=== PATIENT | male | born 1945 | race Caucasian/White ===

== ENCOUNTER → 2020-09-10 | Outpatient (CLI) | payer OTHER ==
--- NOTE | 2020-09-10 10:15 | US ---
EXAMINATION TYPE: US carotid duplex BILAT DATE OF EXAM: 09/10/2020 COMPARISON: NONE CLINICAL HISTORY: Z86.73 PERSONAL HX TRANSIENT ISCHEMIC ATTACK. History of TIA, stent seen within lef t carotid. EXAM MEASUREMENTS: RIGHT: Peak Systolic Velocity (PSV) cm/sec ----- Right CCA: 107.0 ----- Right ICA: 111.0 ----- Right ECA: 115.0 ICA/CCA ratio: 1.0 RIGHT: End Diastole cm/sec ----- Right CCA: 25.3 ----- Right ICA: 24.6 ----- Right ECA: 20.4 LEFT: Peak Systolic Velocity (PSV) cm/sec ----- Left CCA: 138.0 ----- Left ICA: 108.0 ----- Left ECA: 93.7 ICA/CCA ratio: 0.8 LEFT: End Diastole cm/sec ----- Left CCA: 31.2 ----- Left ICA: 36.3 ----- Left ECA: 13.4 VERTEBRALS (direction of flow): Right Vertebral: Antegrade Left Vertebral: Antegrade Rhythm: Normal No significant stenosis. IMPRESSION: No evidence for hemodynamically significant stenosis. Criteria for Assigning % of Stenosis / Diameter reduction (Estimation based on the indirect measurements of the internal carotid artery velocities (ICA PSV). 1. Normal (no stenosis)=ICA PSV < 125 cm/s: ratio < 2.0: ICA EDV<40 cm/s. 2. Less than 50% stenosis=ICA PSV < 125 cm/s: ratio < 2.0: ICA EDV<40 cm/s. 3. 50 to 69% stenosis=ICA PSV of 125 to 230 cm/s: ration 2.0 ? 4.0: ICA EDV 40-100 cm/s. 4. Greater than 70% stenosis to near occlusion= ICA PSV > 230 cm/s: ratio > 4.0: ICA EDV > 100 cm/s. 5. Near occlusion= ICA PSV velocities may be low or undetectable: variable ratio and ICA EDV. 6. Total occlusion=unable to detect flow.
== END | disposition home or self-care (01) ==
LOC: RADUSWWP 09:21
DX: Z86.73 Personal history of transient ischemic attack (TIA), and cerebral infarction without residual deficits (principal)
CPT/HCPCS: 93880

== ENCOUNTER → 2021-10-12 | Outpatient (CLI) | payer OTHER ==
--- NOTE | 2021-10-12 12:59 | US ---
EXAMINATION TYPE: US carotid duplex BILAT DATE OF EXAM: 10/12/2021 COMPARISON: Carotid ultrasound one year ago CLINICAL HISTORY: Z86.73 Personal hx of transient ischemic attack. Hx of TIA x 2. Last one is 2 year s ago. Hx of left carotid stent. No HTN. EXAM MEASUREMENTS: RIGHT: Peak Systolic Velocity (PSV) cm/sec ----- Right CCA: 98.2 ----- Right ICA: 106.4 ----- Right ECA: 94.3 ICA/CCA ratio: 1.1 RIGHT: End Diastole cm/sec ----- Right CCA: 22.7 ----- Right ICA: 24.1 ----- Right ECA: 0.0 LEFT: Peak Systolic Velocity (PSV) cm/sec ----- Left CCA: 99.5 ----- Left ICA: 84.0 ----- Left ECA: 77.9 ICA/CCA ratio: 0.8 LEFT: End Diastole cm/sec ----- Left CCA: 24.5 ----- Left ICA: 28.3 ----- Left ECA: 14.2 VERTEBRALS (direction of flow): Right Vertebral: Antegrade Left Vertebral: Antegrade Rhythm: Normal [id number] peripheral plaque right carotid bulb redemonstrated on grayscale images. Long segmen t Left-sided stent again seen. Velocity measurements remain within normal limits bilaterally IMPRESSION: No significant stenosis in either internal carotid artery. No significant change from prior. Criteria for Assigning % of Stenosis / Diameter reduction (Estimation based on the indirect measurements of the internal carotid artery velocities (ICA PSV). 1. Normal (no stenosis)=ICA PSV < 125 cm/s: ratio < 2.0: ICA EDV<40 cm/s. 2. Less than 50% stenosis=ICA PSV < 125 cm/s: ratio < 2.0: ICA EDV<40 cm/s. 3. 50 to 69% stenosis=ICA PSV of 125 to 230 cm/s: ration 2.0 ? 4.0: ICA EDV 40-100 cm/s. 4. Greater than 70% stenosis to near occlusion= ICA PSV > 230 cm/s: ratio > 4.0: ICA EDV > 100 cm/s. 5. Near occlusion= ICA PSV velocities may be low or undetectable: variable ratio and ICA EDV. 6. Total occlusion=unable to detect flow.
== END | disposition home or self-care (01) ==
LOC: RADUSWWP 10:47
DX: I65.21 Occlusion and stenosis of right carotid artery (principal); Z86.73 Personal history of transient ischemic attack (TIA), and cerebral infarction without residual deficits
CPT/HCPCS: 93880

== ENCOUNTER 2022-03-28 08:33 | Day surgery (SDC) | payer OTHER ==
[2022-03-21 15:47] VITALS: BMI 26.0
[~2022-03-28 08:33] MED LIST: LACTATED RINGERS 1,000 ML IV SCH
[2022-03-28 09:39] VITALS: TEMP 97.4
[2022-03-28 09:47] LABS: Glucose,Whole Blood 134 mg/dL (70-110)
[2022-03-28] MEDS ORDERED: PROPOFOL 10 MG/ML 20 ML VIAL IV ONE (10:20)
[2022-03-28] MEDS ORDERED: LIDOCAINE 2% INJ 20 MG/ML (2 ML VIAL) ONE (10:20)
--- NOTE | 2022-03-28 10:42 | P.PCN ---
Date of Procedure: 03/28/22 Procedure(s) Performed: BRIEF HISTORY: Patient is a 77-year-old pleasant male scheduled for an elective colonoscopy as a part of evaluation of left lower quadrant abdominal pain and change in bowel habits for the last 6 months duration. PROCEDURE PERFORMED: Colonoscopy with biopsy and snare polypectomy. PREOPERATIVE DIAGNOSIS: Lower abdominal pain and change in bowel habits. IV sedation per Anesthesia. PROCEDURE: After informed consent was obtained, the patient, was brought into the endoscopy unit. IV sedation was administered by Anesthesia under continuous monitoring. Digital rectal examination was normal. Initially the Olympus CF-160 flexible video colonoscope was then inserted in the rectum, gradually advanced into the cecum without any difficulty. Careful examination was performed as the scope was gradually being withdrawn. Ileocecal valve and the appendiceal orifice were visualized and appeared normal. Prep was excellent. Mucosa of the cecum, ascending colon, appeared normal. In the transverse colon there was a 5 mm polyp that was removed by snare polypectomy. Rest of the transverse colon, descending colon, sigmoid colon, and rectum appeared normal. Biopsies were done from ascending and descending colon to rule out microscopic/collagenous colitis. Retroflexion was performed in the rectum and no lesions were seen. The patient tolerated the procedure well. IMPRESSION: 5-6 mm transverse colon polyp status post polypectomy Moderate left sided diverticulosis RECOMMENDATIONS: Findings of this examination were discussed with the patient as his family.. He was advised to follow with the biopsy results. If the biopsies adenoma he can have a repeat colonoscopy in 5 years. In the meantime he will continue with dicyclomine 10 mg 3 times daily as needed and increase in office in 3-4 weeks.
[2022-03-28 10:47] VITALS: BP 93/60
[2022-03-28 11:03] VITALS: PULSE 71; RESP 16
== END 2022-03-28 11:30 | disposition home or self-care (01) ==
LOC: ORWHC2ENDO 08:33
PROVIDERS: ATTEND Internal Medicine Gastroenterology
DX: D12.3 Benign neoplasm of transverse colon (principal); K57.30 Diverticulosis of large intestine without perforation or abscess without bleeding; I10 Essential (primary) hypertension; E78.5 Hyperlipidemia, unspecified; J44.9 Chronic obstructive pulmonary disease, unspecified; E11.9 Type 2 diabetes mellitus without complications; I63.9 Cerebral infarction, unspecified; Z79.84 Long term (current) use of oral hypoglycemic drugs; Z79.891 Long term (current) use of opiate analgesic; Z79.83 Long term (current) use of bisphosphonates; Z79.899 Other long term (current) drug therapy
CPT/HCPCS: 88305; 45380; 45385; J2704; J2001

== ENCOUNTER 2022-07-12 09:21 | Inpatient (IN) | payer OTHER, MEDICARE ==
[2022-07-12] MEDS ORDERED: SODIUM CHLORIDE 0.9% 1,000 ML IV STA ×2 (09:55→11:13)
[2022-07-12] MEDS ORDERED: ASPIRIN 81 MG PO STA (09:55)
[2022-07-12 10:16] LABS: Basophils % (A) 0 %; Eosinophils % (A) 0 %; HCT 31.8 % (39.0-53.0); HGB 10.8 gm/dL (13.0-17.5); Lymphocytes # (A) 1.2 k/uL (1.0-4.8); Lymphocytes % (A) 13 %; MCH 33.2 pg (25.0-35.0); MCV 97.8 fL (80.0-100.0); Mean Platelet Volume 8.7; Monocytes # (A) 0.5 k/uL (0-1.0); Monocytes % (A) 5 %; Neutrophils # (A) 7.5 k/uL (1.3-7.7); Neutrophils % (A) 79 %; Platelet Count 257 k/uL (150-450); RBC 3.25 m/uL (4.30-5.90); RDW 12.4 % (11.5-15.5); WBC 9.4 k/uL (3.8-10.6)
--- NOTE | 2022-07-12 10:22 | XR ---
EXAMINATION TYPE: XR chest 2V DATE OF EXAM: 07/12/2022 COMPARISON: NONE HISTORY: Chest pain. TECHNIQUE: Frontal and lateral views of the chest are obtained. FINDINGS: Reticular increased markings bilaterally. There is no suspicious focal air space opacity, pleural effusion, or pneumothorax seen. The cardiac silhouette size is within normal limits with ath erosclerotic change in the aortic knob. The osseous structures are intact. IMPRESSION: Suspect chronic parenchymal fibrotic changes without acute pulmonary process.
[2022-07-12 10:24] LABS: INR 1.2 (<1.2); Partial Thromboplastin Time 29.1 sec (22.0-30.0); Prothrombin Time 12.5 sec (9.0-12.0)
[2022-07-12 10:27] LABS: Albumin 3.4 g/dL (3.5-5.0); Calcium 8.2 mg/dL (8.4-10.2); Magnesium 1.5 mg/dL (1.6-2.3); Potassium 4.5 mmol/L (3.5-5.1); Total Bilirubin 0.9 mg/dL (0.2-1.3); Total Protein 6.1 g/dL (6.3-8.2)
[2022-07-12] MEDS ORDERED: METOPROLOL TARTRATE 12.5 MG TAB PO STA (11:13)
[2022-07-12] MEDS: MAGNESIUM SULFATE-D5W PMX 1 GM in DEXTROSE/WATER 1 100ML.BAG IVPB SCH ×2 (11:19→12:36)
[2022-07-12] MEDS ORDERED: NALOXONE 0.4 MG/ML 1 ML VIAL IV PRN (11:26)
[2022-07-12 11:32] LABS: Appearance,Urine Clear (Clear); Bilirubin,Urine Negative (Negative); Blood,Urine Negative (Negative); Color,Urine Yellow; Glucose,Urine (UA) Negative (Negative); Hyaline Casts,Urine 7 /lpf (0-2); Ketones,Urine Negative (Negative); Leukocyte Esterase,Urine Negative (Negative); Mucus,Urine Occasional /hpf; Nitrite,Urine Negative (Negative); Protein,Urine 1+ (Negative); RBC,Urine 2 /hpf (0-5); Specific Gravity,Urine 1.022 (1.001-1.035); Squamous Epithelial Cell,Urine 1 /hpf (0-4); WBC,Urine 2 /hpf (0-5)
--- NOTE | 2022-07-12 11:44 | ED ---
General Adult HPI - General Chief complaint: Arrhythmia/Palpitations Stated complaint: Recheck Time Seen by Provider: 07/12/22 09:24 Source: patient, family, RN notes reviewed, old records reviewed Mode of arrival: ambulatory Limitations: no limitations - History of Present Illness Initial comments: Patient is a 77-year-old male who presents emergency department over concern for new-onset atrial fibrillation. He has a history of recent cardiac stent placed last week and [facility]. Was sent in by his stump blower Dr. Junior who was seeing him in the office today and was found to be new onset A. fib. Patient does have history of COPD, diabetes, hypertension. States that since cardiac cath and stent placement on Sunday, he has felt weak. States he has been having intermittent chest discomfort as well as that period of time but was due to follow up with Dr. Junior today. He denies any shortness breath, nausea, vomiting, syncope. Endorses dries weakness. States that since the cardiac cath his blood pressures have been lower, with systolics ranging from mid 90s to 110/50. Has no acute complaints at this time. Presents after being sent in for admission by Dr. Junior for cardiology evaluation. - Related Data Home Medications Medication Instructions Recorded Confirmed Acyclovir 200 mg PO BID 03/21/22 07/12/22 Apixaban [Eliquis] 5 mg PO BID 03/21/22 07/12/22 Ascorbic Acid [Vitamin C] 1,000 mg PO DAILY 03/21/22 07/12/22 Atorvastatin [Lipitor] 80 mg PO HS 03/21/22 07/12/22 Cinnamon Bark [Cinnamon] 1,000 mg PO BID 03/21/22 07/12/22 Hydrocodone/Acetaminophen 1 tab PO TID-W/MEALS 03/21/22 07/12/22 [Hydrocodone/Acetaminophen 7.5-325] Latanoprost/Pf [Latanoprost 0.005% 1 drop BOTH EYES HS 03/21/22 07/12/22 Eye Drop] Omeprazole 20 mg PO DAILY 03/21/22 07/12/22 Pregabalin 150 mg PO TID 03/21/22 07/12/22 Tamsulosin [Flomax] 0.4 mg PO DAILY 03/21/22 07/12/22 Vit C/E/Zn/Coppr/Lutein/Zeaxan 1 cap PO BID 03/21/22 07/12/22 [Preservision Areds 2 Softgel] Zinc Gluconate [Zinc] 50 mg PO BID 03/21/22 07/12/22 lisinopriL [Prinivil] 20 mg PO HS 03/21/22 07/12/22 methocarbamoL [Methocarbamol] 750 mg PO Q8H PRN 03/21/22 07/12/22 Alendronate Sodium [Fosamax] 70 mg PO WEEKLY 07/12/22 07/12/22 Aspirin EC [Ecotrin Low Dose] 81 mg PO DAILY 07/12/22 07/12/22 Cholecalciferol [Vitamin D3 (25 25 mcg PO DAILY 07/12/22 07/12/22 Mcg = 1000 Iu)] Dicyclomine [Bentyl] 10 mg PO TID PRN 07/12/22 07/12/22 Fish Oil/Dha/Epa [Fish Oil 1,200 1 cap PO DAILY 07/12/22 07/12/22 mg Fish Oil] Fluticasone Nasal [place] [Flonase 1 spr EA NOSTRIL BID 07/12/22 07/12/22 Nasal [place]] Fluticasone Propion/Salmeterol 1 puff INHALATION RT-BID 07/12/22 07/12/22 [Wixela 250-50 Inhub] Glucosamine Sulfate 1,500 mg PO BID 07/12/22 07/12/22 Hydrocortisone Cream 1 applic TOPICAL DAILY PRN 07/12/22 07/12/22 [Hydrocortisone 2.5% Cream] Hyoscyamine Sulfate [Levsin-Sl] 0.125 mg SL TID PRN 07/12/22 07/12/22 Ketoconazole 2% Shampoo [Nizoral] 1 applic TOPICAL Q2D PRN 07/12/22 07/12/22 Multivit-Min/FA/Lycopen/Lutein 1 tab PO DAILY 07/12/22 07/12/22 [Centrum Silver Tablet] Tiotropium 2.5 Mcg/Puff [Spiriva 2 puff INHALATION RT-DAILY 07/12/22 07/12/22 Respimat 2.5 Mcg] metFORMIN HCL [Glucophage] 500 mg PO BID 07/12/22 07/12/22 Allergies Allergy/AdvReac Type Severity Reaction Status Date / Time No Known Allergies Allergy Verified 07/12/22 12:49 Review of Systems ROS Statement: Those systems with pertinent positive or pertinent negative responses have been documented in the HPI. Review of Systems: CONST: Denies fever EYES: Denies blurry vision ENT: Denies nasal congestion C/V: Denies current chest pain but states he has had some chest pain since his cardiac catheterization last week. RESP: Denies shortness of breath GI: Denies abdominal pain : Denies dysuria SKIN: Denies rash. MSK: Denies joint pain. NEURO: Denies headache ROS Other: All systems not noted in ROS Statement are negative. Past Medical History Past Medical History: COPD, CVA/TIA, Diabetes Mellitus, Eye Disorder, GERD/Reflux, Hearing Disorder / Deafness, Hyperlipidemia, Hypertension, Memory Impairment Additional Past Medical History / Comment(s): Left quadrant pain X4 months. 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 Short term memory problems since CVA. Hx Covid 1 yr ago, "some trouble with lungs since". Macular degeneration. 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 Enlarged prostate. History of Any Multi-Drug Resistant Organisms: None Reported Past Surgical History: Cholecystectomy, Heart Catheterization With Stent, Hernia Repair, Orthopedic Surgery Additional Past Surgical History / Comment(s): Right hand surgery, bilateral shoulder rotator cuff repairs, bilateral cataract surgery. Past Anesthesia/Blood Transfusion Reactions: No Reported Reaction, Postoperative Nausea & Vomiting (PONV) Past Psychological History: No Psychological Hx Reported Smoking Status: Former smoker Past Alcohol Use History: None Reported Past Drug Use History: None Reported - Past Family History Mother Family Medical History: No Reported History Father Family Medical History: Congestive Heart Failure (CHF) Additional Family Medical History / Comment(s): Congestive heart failure General Exam - General Exam Comments Initial Comments: General: Appears in no acute distress. HEAD: Normal with no signs of head trauma. EYES: PERRLA, EOMI, conjunctiva normal, no discharge. ENT: Hearing grossly intact, normal oropharynx. RESPIRATORY: Clear breath sounds bilaterally. No wheezes, rales, or rhonchi. C/V: Irregular rate and rhythm. S1 and S2 auscultated, no edema, peripheral pulses 2+ and intact throughout ABD: Abd is soft, nontender, nondistended EXT: Normal range of motion, no obvious deformity SKIN: No rashes or lesions observed on exposed skin. NEURO: Alert and oriented 4. 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 sent in by a medical professional or institution (, PA, COW BUYER, urgent care, hospital, or residential...) When possible be specific @ -No Did you speak to anyone other than the patient for history (EMS, parent, family, police, friend...)? What history was obtained from this source @ -No Did you review nursing and triage notes (agree or disagree)? Why? @ -I reviewed and agree with nursing and triage notes Were old charts reviewed (outside hosp., previous admission, EMS record, old EKG, old radiological studies, urgent care reports/EKG's, residential records)? Report findings @ -No old charts were reviewed Differential Diagnosis (chest pain, altered mental status, abdominal pain women, abdominal pain men, vaginal bleeding, weakness, fever, dyspnea, syncope, headache, dizziness, GI bleed, back pain, seizure, CVA, palpatations, mental health, musculoskeletal)? @ -Differential Chest Pain: Stable Angina, Unstable Angina, STEMI, NSTEMI Aortic Dissection, Pneumothorax, Musculoskeletal, Esophageal Spasm GERD, Cholecystitis, Pancreatitis, Zoster, atrial fibrillation, postcardiac stent complication this is not meant to be an all-inclusive list. EKG interpreted by me (3pts min.). @ -As above X-rays interpreted by me (1pt min.). @ -Chest x-ray reveals no obvious acute cardio pulmonary process. CT interpreted by me (1pt min.). @ -None done U/S interpreted by me (1pt. min.). @ -Cardiac Echo pending What testing was considered but not performed or refused? (CT, X-rays, U/S, labs)? Why? @ -None What meds were considered but not given or refused? Why? @ -None Did you discuss the management of the patient with other professionals (professionals i.e. , PA, COW BUYER, lab, RT, psych nurse, child protective services social worker, bike technician, teacher, bank secrecy act officer, case maker)? Give summary @ -No Was smoking cessation discussed for >3mins.? @ -No Was critical care preformed (if so, how long)? @ -Yes, 35 minutes Were there social determinants of health that impacted care today? How? (Homelessness, low income, unemployed, alcoholism, drug addiction, transportation, low edu. Level, literacy, decrease access to med. care, snf, rehab)? @ -No Was there de-escalation of care discussed even if they declined (Discuss DNR or withdrawal of care, Hospice)? DNR status @ -No What co-morbidities impacted this encounter? (DM, HTN, Smoking, COPD, CAD, Cancer, CVA, ARF, Chemo, Hep., AIDS, mental health diagnosis, sleep apnea, morbid obesity)? @ -Recent cardiac stent Was patient admitted / discharged? Hospital course, mention meds given and route, prescriptions, significant lab abnormalities, going to OR and other pertinent info. @ -Based on the patient's presentation and physical exam, I'm concerned for new-onset A. fib with RVR. Patient is relatively rate controlled with rate less than 110. He does have somewhat soft blood pressures but he has had blood pressures ranging in the systolics 90s to 110 since discharge after his recent cardiac stent. He is resting comfortably at this time otherwise. We will obtain cardio pulmonary labs. Patient was in agreement this plan. Vital signs are within acceptable limits. Patient was given an aspirin. EKG shows A. fib with slight RVR. Chest x-ray unremarkable. Labs are remarkable for a anemia with a hemoglobin of 10.8. Patient has an AK eye versus EKG with an elevated BUN/creatinine of 37 and 1.74. Patient's hypomagnesemia 1.5. Troponin is elevated to 2.5 which is likely secondary to cardiac catheterization and stent placement that was recently done. We will continue to trend. BNP is elevated to 16,000 also likely secondary to the cardiac catheterization and stent placement. Remainder the labs are within acceptable limits. I discussed the results with the patient. We will continue his home medications of Eliquis as well as his blood pressure meds. He'll be started on low-dose metoprolol as well. He was in agreement this plan. Repeat EKG obtained after the metoprolol revealed that the patient was in normal sinus rhythm at this time. Echo was ordered. Cardiology was consulted. I spoke with the admitting physician, Dr. Marr who accepted the patient. I spoke with Dr. Sanchez of cardiology who presented to the emergency department to evaluate the patient. This is at the same time as the echo was being performed. Dr. Sanchez was in agreement with the management but called and requested I consulted cardiothoracic surgery over concern for ventricular defect seen on echo in the office. Consult was placed to Dr. Ayon and I did contact the PA on-call, David Andre who accepted the patient as a consult. He will evalu ate the patient. ED Echo is being completed at this time. Paperwork from [facility] was requested and is waiting to be faxed to us. Patient was updated and he was in agreement with this plan. Patient will be admitted to a hospital in serious condition. I spoke with Dr. Benitez of [facility] physicians group and updated him on the concern of the stump blower and that the consult was placed to CT surgery and I contacted the team directly. He expressed understanding. Undiagnosed new problem with uncertain prognosis? @ -No Drug Therapy requiring intensive monitoring for toxicity (Heparin, Nitro, Insulin, Cardizem)? @ -No Were any procedures done? @ -No Diagnosis/symptom? @ -New-onset A. fib with RVR Acute, or Chronic, or Acute on Chronic? @ -Acute Uncomplicated (without systemic symptoms) or Complicated (systemic symptoms)? @ -Complicated Side effects of treatment? @ -No Exacerbation, Progression, or Severe Exacerbation? @ -No Poses a threat to life or bodily function? How? (Chest pain, [place], [place], pneumonia, PE, COPD, DKA, ARF, appy, cholecystitis, CVA, Diverticulitis, Homicidal, Suicidal, threat to staff... and all critical care pts) @ -Yes, poorly controlled can result in significant morbidity and mortality. Diagnosis/symptom? @ -Recent cardiac stent with elevated troponin, possible ventricular wall defect Acute, or Chronic, or Acute on Chronic? @ -Acute Uncomplicated (without systemic symptoms) or Complicated (systemic symptoms)? @ -Complicated Side effects of treatment? @ -none Exacerbation, Progression, or Severe Exacerbation] @ -no Poses a threat to life or bodily function? @ -Yes, depending on etiology could be threat to life a significant morbidity and mortality. Diagnosis/symptom? @ -Hypomagnesemia Acute, or Chronic, or Acute on Chronic? @ -Acute Uncomplicated (without systemic symptoms) or Complicated (systemic symptoms)? @ -Uncomplicated Side effects of treatment? @ -none Exacerbation, Progression, or Severe Exacerbation] @ -no Poses a threat to life or bodily function? @ -no Diagnosis/symptom? @ -ROSA Acute, or Chronic, or Acute on Chronic? @ -Acute Uncomplicated (without systemic symptoms) or Complicated (systemic symptoms)? @ -Uncomplicated Side effects of treatment? @ -none Exacerbation, Progression, or Severe Exacerbation] @ -no Poses a threat to life or bodily function? @ -no - Lab Data Result diagrams: 07/13/22 07:30 07/13/22 08:55 Lab Results 07/12/22 07/12/22 07/12/22 Range/Units 10:00 10:00 10:00 WBC 9.4 (3.8-10.6) k/uL RBC 3.25 L (4.30-5.90) m/uL Hgb 10.8 L (13.0-17.5) gm/dL Hct 31.8 L (39.0-53.0) % MCV 97.8 (80.0-100.0) fL MCH 33.2 (25.0-35.0) pg MCHC 34.0 (31.0-37.0) g/dL RDW 12.4 (11.5-15.5) % Plt Count 257 (150-450) k/uL MPV 8.7 Neutrophils % 79 % Lymphocytes % 13 % Monocytes % 5 % Eosinophils % 0 % Basophils % 0 % Neutrophils # 7.5 (1.3-7.7) k/uL Lymphocytes # 1.2 (1.0-4.8) k/uL Monocytes # 0.5 (0-1.0) k/uL Eosinophils # 0.0 (0-0.7) k/uL Basophils # 0.0 (0-0.2) k/uL PT 12.5 H (9.0-12.0) sec INR 1.2 H (<1.2) APTT 29.1 (22.0-30.0) sec Sodium (137-145) mmol/L Potassium (3.5-5.1) mmol/L Chloride (98-107) mmol/L Carbon Dioxide (22-30) mmol/L Anion Gap mmol/L BUN (9-20) mg/dL Creatinine (0.66-1.25) mg/dL Est GFR (CKD-EPI)AfAm (>60 ml/min/1.73 sqM) Est GFR (CKD-EPI)NonAf (>60 ml/min/1.73 sqM) Glucose (74-99) mg/dL Calcium (8.4-10.2) mg/dL Magnesium (1.6-2.3) mg/dL Total Bilirubin (0.2-1.3) mg/dL AST (17-59) U/L ALT (4-49) U/L Alkaline Phosphatase (38-126) U/L Troponin I (0.000-0.034) ng/mL NT-Pro-B Natriuret Pep pg/mL Total Protein (6.3-8.2) g/dL Albumin (3.5-5.0) g/dL Urine Color Yellow Urine Appearance Clear (Clear) Urine pH 5.0 (5.0-8.0) Ur Specific [place] 1.022 (1.001-1.035) Urine Protein 1+ H (Negative) Urine Glucose (UA) Negative (Negative) Urine Ketones Negative (Negative) Urine Blood Negative (Negative) Urine Nitrite Negative (Negative) Urine Bilirubin Negative (Negative) Urine Urobilinogen 2.0 (<2.0) mg/dL Ur Leukocyte Esterase Negative (Negative) Urine RBC 2 (0-5) /hpf Urine WBC 2 (0-5) /hpf Ur Squamous Epith Cells 1 (0-4) /hpf Hyaline Casts 7 H (0-2) /lpf Urine Mucus Occasional H (None) /hpf 07/12/22 07/12/22 07/12/22 Range/Units 10:00 10:00 10:00 WBC (3.8-10.6) k/uL RBC (4.30-5.90) m/uL Hgb (13.0-17.5) gm/dL Hct (39.0-53.0) % MCV (80.0-100.0) fL MCH (25.0-35.0) pg MCHC (31.0-37.0) g/dL RDW (11.5-15.5) % Plt Count (150-450) k/uL MPV Neutrophils % % Lymphocytes % % Monocytes % % Eosinophils % % Basophils % % Neutrophils # (1.3-7.7) k/uL Lymphocytes # (1.0-4.8) k/uL Monocytes # (0-1.0) k/uL Eosinophils # (0-0.7) k/uL Basophils # (0-0.2) k/uL PT (9.0-12.0) sec INR (<1.2) APTT (22.0-30.0) sec Sodium 135 L (137-145) mmol/L Potassium 4.5 (3.5-5.1) mmol/L Chloride 104 (98-107) mmol/L Carbon Dioxide 18 L (22-30) mmol/L Anion Gap 13 mmol/L BUN 37 H (9-20) mg/dL Creatinine 1.74 H (0.66-1.25) mg/dL Est GFR (CKD-EPI)AfAm 43 (>60 ml/min/1.73 sqM) Est GFR (CKD-EPI)NonAf 38 (>60 ml/min/1.73 sqM) Glucose 194 H (74-99) mg/dL Calcium 8.2 L (8.4-10.2) mg/dL Magnesium 1.5 L (1.6-2.3) mg/dL Total Bilirubin 0.9 (0.2-1.3) mg/dL AST 91 H (17-59) U/L ALT 92 H (4-49) U/L Alkaline Phosphatase 78 (38-126) U/L Troponin I 2.580 H* (0.000-0.034) ng/mL NT-Pro-B Natriuret Pep 33612 pg/mL Total Protein 6.1 L (6.3-8.2) g/dL Albumin 3.4 L (3.5-5.0) g/dL Urine Color Urine Appearance (Clear) Urine pH (5.0-8.0) Ur Specific [place] (1.001-1.035) Urine Protein (Negative) Urine Glucose (UA) (Negative) Urine Ketones (Negative) Urine Blood (Negative) Urine Nitrite (Negative) Urine Bilirubin (Negative) Urine Urobilinogen (<2.0) mg/dL Ur Leukocyte Esterase (Negative) Urine RBC (0-5) /hpf Urine WBC (0-5) /hpf Ur Squamous Epith Cells (0-4) /hpf Hyaline Casts (0-2) /lpf Urine Mucus (None) /hpf - EKG Data -: EKG Interpreted by Me EKG Comments: 12-lead Electrocardiogram Interpretation Note EKG was reviewed and interpreted by myself. 12-lead ECG performed at 0949 is interpreted by me as revealing atrial fibrillation at a rate of 113 beats per m inute. Left axis deviation. RI interval is 172 ms, QRS duration is 126 ms, QTc is 404 ms.. There were no ST or T wave abnormalities to suggest myocardial ischemia or injury. R wave progression across the precordium was satisfactory. By my interpretation this EKG is non-diagnostic for acute ischemia. 12-lead Electrocardiogram Interpretation Note EKG was reviewed and interpreted by myself. 12-lead ECG performed at 1147 is interpreted by me as revealing sinus tachycardia at a rate of 100 beats per minute. Left axis deviation. RI interval is 193 ms, QRS duration is 127 ms, QTc is 420 ms.. There were no ST or T wave abnormalities to suggest myocardial ischemia or injury. R wave progression across the precordium was satisfactory. By my interpretation this EKG is non-diagnostic for acute ischemia. Resolution of the A. fib. Patient is more regular on the monitor as well. Critical Care Time Critical Care Time: Yes Total Critical Care Time: 35 Critical Care Time: Upon my evaluation, this patient had a high probability of imminent or life- threatening deterioration due to new onset A. fib with RVR, concern for consultation status post cardiac cath, which required my direct attention, intervention, and personal management. I have personally provided 35 minutes of critical care time exclusive of time spent on separately billable procedures. Time includes review of laboratory data, radiology results, discussion with consultants, and monitoring for potential decompensation. Interventions were performed as documented in my note. Disposition Clinical Impression: Atrial fibrillation with RVR, Elevated troponin, CAD (coronary artery disease) Disposition: ADMITTED IP TO THIS HOSP Condition: Serious Time of Disposition: 11:15
[2022-07-12] MEDS ORDERED: METOPROLOL TARTRATE 25 MG TAB PO STA (13:31)
[2022-07-12] MEDS ORDERED: methocarbamoL 750 MG TAB PO PRN (14:27)
--- NOTE | 2022-07-12 14:29 | P.HPIM ---
History of Present Illness H&P Date: 07/12/22 Chief Complaint: Atrial fibrillation, dyspnea 77-year-old man with medical history of STEMI with recent stent placement approximately one week ago, hypertension, hyperlipidemia, COPD, BPH presented for evaluation of dyspnea, atrial fibrillation. Patient says that he was rec ently discharged approximately 1 week ago from [facility] after STEMI status post PCI. Throughout the week she starts noticing increasing dyspnea on exertion. 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 Patient reports mild chest pain, palpitations. He also reports dyspnea especially on exertion and orthopnea. He denies fevers, chills, nausea, vomiting, cough, abdominal pain, constipation, diarrhea, dysuria, dyschezia, numbness/weakness of extremities In the emergency room, patient was afebrile, 90/56, heart rate 108, 98% on room air. CBC shows anemia down to 10.8, otherwise unremarkable. Chemistries show hyponatremia to 135, CO2 of 18, BUN of 37, creatinine of 1.74, glucose of 194, magnesium of 1.5. Liver function test show AST of 91, ALT of 92, protein of 6.1, albumin of 3.4. Troponin was 2.58, down trended to 2.14. BNP was 16,600. Coags show an INR 1.2. UA shows 1+ protein, 7 hyaline casts, otherwise unremarkable. Chest x-ray shows right-sided pleural effusion, bilateral alveolar infiltrates consistent with pulmonary edema with increased pulmonary va sculature. Initial EKG showed atrial fibrillation with RVR, left axis deviation, no signs of active ischemia. Repeat EKG showed sinus tachycardia at a rate of 100 with left axis deviation and left anterior fascicular block. Case was discussed with the emergency room physician decision was made to admit the patient to observation for atrial fibrillation with RVR as well as congestive heart failure exacerbation. All Systems reviewed and pertinent positives and negatives noted in HPI, all other symptoms are negative Gen: in no apparent distress, resting comfortably in bed Eyes: PERRL, no scleral injection or icterus HENT: normocephalic, atraumatic, good hearing acuity, moist mucous membranes Neck: no tracheal deviation, full range of motion Resp: good air exchange, breathing comfortably with no accessory muscle use, no tactile fremitus, bilateral crackles in the posterior lung lopez CVS: good distal perfusion x 4, no pitting edema, regular rate and rhythm without murmurs GI: soft, NTTP, ND, no hepatosplenomegaly : no suprapubic tenderness, no CVAT, leroy catheter not present MSK: no clubbing, no cyanosis, no noted contractures of extremities Skin: no noted rashes, petechiae; temperature of skin is appropriate Neuro: moving all extremities without signs of weakness, CN II-XII intact Psych: cooperative, euthymic mood, insight and judgment intact Labs and imaging as above Assessment: Paroxysmal atrial fibrillation with RVR Acute congestive heart failure, unspecified ejection fraction Acute kidney injury Coronary artery disease status post recent PCI Hypertension Hyperlipidemia COPD without exacerbation BPH Plan: Vital signs reviewed and noted in HPI CBC, basic metabolic panel, liver function tests, troponin, BNP, coags, UA were reviewed and noted in HPI Chest x-ray and EKG were personally interpreted in noted in HPI Case was discussed with the emergency room physician, decision was made to admit the patient to observation for atrial fibrillation with RVR as well as congestive heart failure exacerbation CBC, basic metabolic panel, magnesium ordered for tomorrow Trended troponins Cardiology was consulted Lasix 20 mg IV daily ordered Agree with metoprolol 25 mg twice a day Resume patient's home Apixiban Resume patient's home aspirin, statin, Plavix Past Medical History Past Medical History: COPD, CVA/TIA, Diabetes Mellitus, Eye Disorder, GERD/Reflux, Hearing Disorder / Deafness, Hyperlipidemia, Hypertension, Memory Impairment Additional Past Medical History / Comment(s): Left quadrant pain X4 months. 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 Short term memory problems since CVA. Hx Covid 1 yr ago, "some trouble with lungs since". Macular degeneration. 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 Enlarged prostate. History of Any Multi-Drug Resistant Organisms: None Reported Past Surgical History: Cholecystectomy, Heart Catheterization With Stent, Hernia Repair, Orthopedic Surgery Additional Past Surgical History / Comment(s): Right hand surgery, bilateral shoulder rotator cuff repairs, bilateral cataract surgery. Past Anesthesia/Blood Transfusion Reactions: No Reported Reaction, Postoperative Nausea & Vomiting (PONV) Past Psychological History: No Psychological Hx Reported Smoking Status: Former smoker Past Alcohol Use History: None Reported Past Drug Use History: None Reported - Past Family History Mother Family Medical History: No Reported History Medications and Allergies Home Medications Medication Instructions Recorded Confirmed Type Acyclovir 200 mg PO BID 03/21/22 07/12/22 History Apixaban [Eliquis] 5 mg PO BID 03/21/22 07/12/22 History Ascorbic Acid [Vitamin C] 1,000 mg PO DAILY 03/21/22 07/12/22 History Atorvastatin [Lipitor] 80 mg PO HS 03/21/22 07/12/22 History Cinnamon Bark [Cinnamon] 1,000 mg PO BID 03/21/22 07/12/22 History Hydrocodone/Acetaminophen 1 tab PO TID-W/MEALS 03/21/22 07/12/22 History [Hydrocodone/Acetaminophen 7.5-325] Latanoprost/Pf [Latanoprost 0.005% 1 drop BOTH EYES HS 03/21/22 07/12/22 History Eye Drop] Omeprazole 20 mg PO DAILY 03/21/22 07/12/22 History Pregabalin 150 mg PO TID 03/21/22 07/12/22 History Tamsulosin [Flomax] 0.4 mg PO DAILY 03/21/22 07/12/22 History Vit C/E/Zn/Coppr/Lutein/Zeaxan 1 cap PO BID 03/21/22 07/12/22 History [Preservision Areds 2 Softgel] Zinc Gluconate [Zinc] 50 mg PO BID 03/21/22 07/12/22 History lisinopriL [Prinivil] 20 mg PO HS 03/21/22 07/12/22 History methocarbamoL [Methocarbamol] 750 mg PO Q8H PRN 03/21/22 07/12/22 History Alendronate Sodium [Fosamax] 70 mg PO WEEKLY 07/12/22 07/12/22 History Aspirin EC [Ecotrin Low Dose] 81 mg PO DAILY 07/12/22 07/12/22 History Cholecalciferol [Vitamin D3 (25 25 mcg PO DAILY 07/12/22 07/12/22 History Mcg = 1000 Iu)] Dicyclomine [Bentyl] 10 mg PO TID PRN 07/12/22 07/12/22 History Fish Oil/Dha/Epa [Fish Oil 1,200 1 cap PO DAILY 07/12/22 07/12/22 History mg Fish Oil] Fluticasone Nasal Sage [Flonase 1 spr EA NOSTRIL BID 07/12/22 07/12/22 History Nasal Sage] Fluticasone Propion/Salmeterol 1 puff INHALATION RT-BID 07/12/22 07/12/22 History [Wixela 250-50 Inhub] Glucosamine Sulfate 1,500 mg PO BID 07/12/22 07/12/22 History Hydrocortisone Cream 1 applic TOPICAL DAILY PRN 07/12/22 07/12/22 History [Hydrocortisone 2.5% Cream] Hyoscyamine Sulfate [Levsin-Sl] 0.125 mg SL TID PRN 07/12/22 07/12/22 History Ketoconazole 2% Shampoo [Nizoral] 1 applic TOPICAL Q2D PRN 07/12/22 07/12/22 History Multivit-Min/FA/Lycopen/Lutein 1 tab PO DAILY 07/12/22 07/12/22 History [Centrum Silver Tablet] Tiotropium 2.5 Mcg/Puff [Spiriva 2 puff INHALATION RT-DAILY 07/12/22 07/12/22 History Respimat 2.5 Mcg] metFORMIN HCL [Glucophage] 500 mg PO BID 07/12/22 07/12/22 History Allergies Allergy/AdvReac Type Severity Reaction Status Date / Time No Known Allergies Allergy Verified 07/12/22 12:49 Physical Exam Osteopathic Statement: *. No significant issues noted on an osteopathic structural exam other than those noted in the History and Physical/Consult. Vitals: Vital Signs Temp Pulse Pulse Resp BP Pulse Ox 07/12/22 13:58 100 18 90/67 95 07/12/22 13:20 95 16 92/66 96 07/12/22 12:40 97.5 F L 98 17 89/63 95 07/12/22 12:30 98 07/12/22 12:00 101 H 16 92/68 95 07/12/22 09:38 98 F 108 H 18 90/56 98 Intake and Output 07/11/22 07/12/22 07/12/22 22:59 06:59 14:59 Other: Weight 89.811 kg Results CBC & Chem 7: 07/12/22 10:00 07/12/22 10:00 Labs: Abnormal Lab Results - Last 24 Hours (Table) 07/12/22 07/12/22 07/12/22 Range/Units 10:00 10:00 10:00 RBC 3.25 L (4.30-5.90) m/uL Hgb 10.8 L (13.0-17.5) gm/dL Hct 31.8 L (39.0-53.0) % PT 12.5 H (9.0-12.0) sec INR 1.2 H (<1.2) Sodium (137-145) mmol/L Carbon Dioxide (22-30) mmol/L BUN (9-20) mg/dL Creatinine (0.66-1.25) mg/dL Glucose (74-99) mg/dL Calcium (8.4-10.2) mg/dL Magnesium (1.6-2.3) mg/dL AST (17-59) U/L ALT (4-49) U/L Troponin I (0.000-0.034) ng/mL Total Protein (6.3-8.2) g/dL Albumin (3.5-5.0) g/dL Urine Protein 1+ H (Negative) Hyaline Casts 7 H (0-2) /lpf Urine Mucus Occasional H (None) /hpf 07/12/22 07/12/22 07/12/22 Range/Units 10:00 10:00 12:09 RBC (4.30-5.90) m/uL Hgb (13.0-17.5) gm/dL Hct (39.0-53.0) % PT (9.0-12.0) sec INR (<1.2) Sodium 135 L (137-145) mmol/L Carbon Dioxide 18 L (22-30) mmol/L BUN 37 H (9-20) mg/dL Creatinine 1.74 H (0.66-1.25) mg/dL Glucose 194 H (74-99) mg/dL Calcium 8.2 L (8.4-10.2) mg/dL Magnesium 1.5 L (1.6-2.3) mg/dL AST 91 H (17-59) U/L ALT 92 H (4-49) U/L Troponin I 2.580 H* 2.140 H* (0.000-0.034) ng/mL Total Protein 6.1 L (6.3-8.2) g/dL Albumin 3.4 L (3.5-5.0) g/dL Urine Protein (Negative) Hyaline Casts (0-2) /lpf Urine Mucus (None) /hpf
--- NOTE | 2022-07-12 16:33 | CA ---
Transthoracic Echo Report Name: Vic Valdes Age: 77 Gender: M : 1945 Exam Date: 07/12/2022 12:20 Exam Location: [facility] Ht (in): 72 Wt (lb): 198 Ordering Physician: Chip Lopez MD Attending/Referring Phys: [employer] Professor Tea Castle RDCS Procedure CPT: Indications: recent cardiac stent, new afib Cardiac Hx: Hx of stent Technical Quality: Good Contrast 1: Total Dose (mL): Contrast 2: Total Dose (mL): MEASUREMENTS (Male / Female) Normal Values 2D ECHO LV Diastolic Diameter PLAX 5.8 cm 4.2 - 5.9 / 3.9 - 5.3 cm LV Systolic Diameter PLAX 4.6 cm IVS Diastolic Thickness 1.3 cm 0.6 - 1.0 / 0.6 - 0.9 cm LVPW Diastolic Thickness 1.1 cm 0.6 - 1.0 / 0.6 - 0.9 cm LV Relative Wall Thickness 0.4 RV Internal Dim ED PLAX 4.1 cm LA Systolic Diameter LX 4.6 cm 3.0 - 4.0 / 2.7 - 3.8 cm LV Diastolic Volume MOD BP 177.0 cm??? 67 - 155 / 56 - 104 cm??? LV Systolic Volume MOD BP 96.2 cm??? 22 - 58 / 19 - 49 cm??? LV Ejection Fraction MOD BP 45.7 % >= 55 % LV Diastolic Volume MOD 4C 142.9 cm??? LV Systolic Volume MOD 4C 75.0 cm??? LV Ejection Fraction MOD 4C 47.5 % LV Diastolic Length 4C 8.5 cm LV Systolic Length 4C 7.6 cm LV Diastolic Volume MOD 2C 218.1 cm??? LV Systolic Volume MOD 2C 121.3 cm??? LV Ejection Fraction MOD 2C 44.4 % LV Diastolic Length 2C 8.7 cm LV Systolic Length 2C 7.9 cm LA Volume 67.3 cm??? 18 - 58 / 22 - 52 cm??? M-MODE Aortic Root Diameter MM 3.9 cm MV E Point Septal Separation 0.4 cm AV Cusp Separation MM 2.3 cm DOPPLER AV Peak Velocity 91.8 cm/s AV Peak Gradient 3.4 mmHg MV Peak Velocity 142.8 cm/s MV Peak Gradient 8.2 mmHg MV Mean Velocity 92.2 cm/s MV Mean Gradient 3.8 mmHg MV Velocity Time Integral 34.0 cm MV Area PHT 5.2 cm??? MR Peak Velocity 420.7 cm/s MR Peak Gradient 70.8 mmHg Mitral E Point Velocity 128.5 cm/s Mitral A Point Velocity 102.9 cm/s Mitral E to A Ratio 1.2 MV Deceleration Time 147.1 ms MV E' Velocity 6.6 cm/s Mitral E to MV E' Ratio 19.4 TR Peak Gradient 39.2 mmHg Right Ventricular Systolic Press 52.0 mmHg FINDINGS Left Ventricle Left ventricular ejection fraction is estimated at 40-45 %. Mildly increased septal wall thickness. Mildly increased left ventricular diastolic volume. Severely increased left ventricular systolic volume. Mildly decreased left ventricular ejection fraction. Infero basel wall dyskinesis. Infero basel anurysm. mild concentric left ventricular hypertrophy. Right Ventricle Severe right ventricular dilatation. Moderate pulmonary hypertension. Max RSVP is 52 mmHg. There is a bilateral flow in RV on the level of tricuspid valve chordea. Moderatly impared right heart systolic function Right Atrium Normal right atrial size. Left Atrium Mildly increased left atrial diameter. Mildly increased left atrial volume. Mildly increased left atrial area. Mitral Valve Structurally normal mitral valve. Moderate mitral regurgitation. Aortic Valve Trileaflet aortic valve. No aortic valve stenosis or regurgitation. Tricuspid Valve Structurally normal tricuspid valve. Pulmonic Valve Structurally normal pulmonic valve. Mild pulmonic regurgitation. Pericardium Normal pericardium. No pericardial effusion. Aorta Moderate aortic dilatation at the level of the sinuses of valsalva 39 CONCLUSIONS Mildly impaired LV function. The EF is 40-45% Dilated right ventricle. Moderate pulmonary hypertension. There is flow to the RV at the level of tricuspid valve could be concerning for small ventricular septal defect Moderate mitral regurgitation Previewed by: Dr. Levon Goss MD (Electronically Signed) Final Date: 12 July 2022 16:32
[2022-07-12 16:46] LABS: Glucose,Whole Blood 188 mg/dL (70-110)
[2022-07-12] MEDS: PREGABALIN 75 MG CAP PO SCH ×2 (17:02→20:59)
[2022-07-12] MEDS: FUROSEMIDE 10 MG/ML 2 ML VIAL IV SCH (17:02)
[2022-07-12 17:24] LABS: Glucose,Whole Blood 163 mg/dL (70-110)
[2022-07-12] MEDS: HYDROcodone/APAP 7.5-325MG 1 EACH TAB PO SCH (17:28)
--- NOTE | 2022-07-12 17:43 | P.GSCN ---
History of Present Illness Consult date: 07/12/22 Reason for Consult: Moderate to severe mitral valve regurgitation and basal inferior wall shows cerebral aneurysm on 2-D echocardiogram Requesting physician: Jag Junior History of present illness: This is a 77-year-old gentleman who follows on an outpatient basis first primary care service with Dr. Amor Schultz and the [facility] in [place], and he also follows with Dr. Kelly Junior for his cardiology care. He has a past medical history significant for hypertension, hyperlipidemia, pulmonary embolism 2 years ago and is on Eliquis for anticoagulation as an outpatient, history of cerebral aneurysm with stenting, type 2 diabetes mellitus, CVA with right-sided weakness in 2015 with a continued deficit of not being able to tell hot from cold to his right side, a CVA with left-sided weakness in 2019 with a residual deficit of not being able to process sentences at times. He also has a history of COPD, remote history of smoking dependence in which he quit smoking 52 years ago, benign prostatic hypertrophy, irritable bowel syndrome, and a recent STEMI on 07/01/2022, status post heart catheterization with findings of multivessel coronary artery disease and status post PTCA and PCI stenting of the proximal left anterior descending coronary artery with a 3.5 mm 18 mm Xience skypoint JOANN on 07/04/2022 performed at [facility]. Subsequently, the patient presented to his primary cardiology office today to see Dr. Kelly Junior and reports that he has had complaints of chest pressure and weakness in his bilateral upper extremities which started 07/10/2022 when he was bearing down on the toilet trying to have a bowel movement. He also is complaining of some shortness of breath with exertion and denies any complaints of chest pain. He denies any recent fever, chills, nausea, vomiting, palpitations, orthopnea, edema, presyncope or syncope. While in the office the patient underwent a villalpando sthoracic 2-D echocardiogram which demonstrated a mildly dilated LV with borderline normal function, an ejection fraction of 50-55%, a large hypokinetic area of the anterior, anteriolateral, inferioeptal, and inferioseptal gramajo. According to Dr. Coppola is office note the basal inferior wall shows a pseudoaneurysm and moderate to severe mitral valve regurgitation. The 2-D echo cardiogram also showed moderate tricuspid valve regurgitation, moderately increased pulmonary artery systolic pressure of 56 mmHg, and physiologic pulmonic regurgitation. Also during his physical exam at the office the patient was found to have a significant murmur of mitral valve regurgitation. For further evaluation a 12-lead EKG was completed which showed atrial fibrillation with poorly controlled ventricular rate with a heart rate of 128 BPM and evidence of prior and further wall myocardial infarction. He was recommended to present at the emergency department here at [facility] for further workup and evaluation. The patient was seen and examined at his bedside in the emergency department, according to the patient and the patient's a bedside 2-D echocardiogram was just completed although the report is not available at this time. His bedside telemetry is showing normal sinus rhythm heart rate in the 90s and had just been given a dose of beta florentino and recently converted to normal sinus rhythm from atrial fibrillation. The patient denies any complaints of chest pain/pressure at this time although does have some shortness of breath with even speaking. He is also complaining of weakness to his bilateral upper extremities. A chest x-ray was completed in the emergency department which showed suspected chronic parenchymal fibrotic changes without acute pulmonary process. Initial laboratory results showed a WBC count of 9.4, hemoglobin 10.8, hematocrit 31.8, platelets 257, PT 12.5, INR 1.2, PTT 29.1, sodium 135, potassium 4.5, CO2 18, BUN 37, creatinine 1.74, glucose 194, calcium 8.2, magnesium 1.5, AST 91, ALT 92, troponin 2.580, and proBNP 16,600. Initial 12-lead EKG completed in the emergency department showed atrial fibrillation with a heart rate of 113 BPM and a follow-up 12-lead EKG showed sinus tachycardia, left anterior fascicular block, nonspecific T-wave abnormality with a heart rate of 100 BPM. The heart catheterization results from [facility] were obtained and showed severe multivessel coronary artery disease, severe proximal LAD stenosis, severe proximal RCA stenosis, possibly RCA [employer], mildly elevated left sided filling pressures, elevated systemic pressures and no aortic valve stenosis. Subsequently, due to the findings of moderate to severe mitral valve regurgitation and basal inferior wall pseudoaneurysm a consult was placed to Dr. Pedro Ayon for further evaluation and treatment recommendations. Review of Systems A 14 point review of systems was completed and was negative except as mentioned in the HPI. 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 Short term memory problems since CVA. Hx Covid 1 yr ago, "some trouble with lungs since". Macular degeneration. 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 Enlarged prostate. stemi 07/01/22 with stent placement. Last Myocardial Infarction Date:: 07/01/22 History of Any Multi-Drug Resistant Organisms: None Reported Past Surgical History: Ablation, Cholecystectomy, Heart Catheterization With Stent, Hernia Repair, Orthopedic Surgery Additional Past Surgical History / Comment(s): stemi 07/01/22 with stent placement 07/04/22 Right thumb surgery, bilateral shoulder rotator cuff repairs, bilateral cataract surgery, history of stenting cerebral aneurysm. Past Anesthesia/Blood Transfusion Reactions: No Reported Reaction, Postoperative Nausea & Vomiting (PONV) Date of Last Stent Placement:: 07/04/22 Past Psychological History: No Psychological Hx Reported Smoking Status: Former smoker (Quit smoking 52 years ago) Past Alcohol Use History: None Reported Additional Past Alcohol Use History / Comment(s): Quit smoking 50 yrs ago. Past Drug Use History: None Reported - Past Family History Mother Family Medical History: No Reported History Additional Family Medical History / Comment(s): History of lung and heart problems Father Family Medical History: Congestive Heart Failure (CHF) Additional Family Medical History / Comment(s): Congestive heart failure Medications and Allergies Home Medications Medication Instructions Recorded Confirmed Type Acyclovir 200 mg PO BID 03/21/22 07/12/22 History Apixaban [Eliquis] 5 mg PO BID 03/21/22 07/12/22 History Ascorbic Acid [Vitamin C] 1,000 mg PO DAILY 03/21/22 07/12/22 History Atorvastatin [Lipitor] 80 mg PO HS 03/21/22 07/12/22 History Cinnamon Bark [Cinnamon] 1,000 mg PO BID 03/21/22 07/12/22 History Hydrocodone/Acetaminophen 1 tab PO TID-W/MEALS 03/21/22 07/12/22 History [Hydrocodone/Acetaminophen 7.5-325] Latanoprost/Pf [Latanoprost 0.005% 1 drop BOTH EYES HS 03/21/22 07/12/22 History Eye Drop] Omeprazole 20 mg PO DAILY 03/21/22 07/12/22 History Pregabalin 150 mg PO TID 03/21/22 07/12/22 History Tamsulosin [Flomax] 0.4 mg PO DAILY 03/21/22 07/12/22 History Vit C/E/Zn/Coppr/Lutein/Zeaxan 1 cap PO BID 03/21/22 07/12/22 History [Preservision Areds 2 Softgel] Zinc Gluconate [Zinc] 50 mg PO BID 03/21/22 07/12/22 History lisinopriL [Prinivil] 20 mg PO HS 03/21/22 07/12/22 History methocarbamoL [Methocarbamol] 750 mg PO Q8H PRN 03/21/22 07/12/22 History Alendronate Sodium [Fosamax] 70 mg PO WEEKLY 07/12/22 07/12/22 History Aspirin EC [Ecotrin Low Dose] 81 mg PO DAILY 07/12/22 07/12/22 History Cholecalciferol [Vitamin D3 (25 25 mcg PO DAILY 07/12/22 07/12/22 History Mcg = 1000 Iu)] Dicyclomine [Bentyl] 10 mg PO TID PRN 07/12/22 07/12/22 History Fish Oil/Dha/Epa [Fish Oil 1,200 1 cap PO DAILY 07/12/22 07/12/22 History mg Fish Oil] Fluticasone Nasal Jackson [Flonase 1 spr EA NOSTRIL BID 07/12/22 07/12/22 History Nasal Jackson] Fluticasone Propion/Salmeterol 1 puff INHALATION RT-BID 07/12/22 07/12/22 History [Wixela 250-50 Inhub] Glucosamine Sulfate 1,500 mg PO BID 07/12/22 07/12/22 History Hydrocortisone Cream 1 applic TOPICAL DAILY PRN 07/12/22 07/12/22 History [Hydrocortisone 2.5% Cream] Hyoscyamine Sulfate [Levsin-Sl] 0.125 mg SL TID PRN 07/12/22 07/12/22 History Ketoconazole 2% Shampoo [Nizoral] 1 applic TOPICAL Q2D PRN 07/12/22 07/12/22 History Multivit-Min/FA/Lycopen/Lutein 1 tab PO DAILY 07/12/22 07/12/22 History [Centrum Silver Tablet] Tiotropium 2.5 Mcg/Puff [Spiriva 2 puff INHALATION RT-DAILY 07/12/22 07/12/22 History Respimat 2.5 Mcg] metFORMIN HCL [Glucophage] 500 mg PO BID 07/12/22 07/12/22 History Allergies Allergy/AdvReac Type Severity Reaction Status Date / Time No Known Allergies Allergy Verified 07/12/22 12:49 Surgical - Exam Vital Signs Temp Pulse Resp BP Pulse Ox 98 F 108 H 18 90/56 98 07/12/22 09:38 07/12/22 09:38 07/12/22 09:38 07/12/22 09:38 07/12/22 09:38 - General Patient was seen in the emergency department, currently lying in bed, short of breath with talking, oxygen saturations 97% on room air, cooperative and is in no acute distress. well developed, well nourished, no pain, chronically ill - Eyes PERRL, normal ocular movement, no icteric - ENT Pale mucosa normal pinna, normal nares, no congestion, decreased hearing (To his right ear), poor assisted - Neck Positive bruits bilateral, no lymphadenopathy, no JVD. no masses, trachea midline, no venous distension carotid bruit: bilateral (Could be radiating from his heart murmur) - Respiratory Lungs essentially clear throughout, few scattered crackles throughout. No wheezes or rhonchi. Respirations are symmetrical and nonlabored. Oxygen saturation 97% on room air. - Cardiovascular Regular rhythm and rate. S1 and S2 present, negative for S3 or gallop. Pansystolic murmur, 3/6. No edema present. Heart Rate: 95 Rhythm: regular - Abdomen Abdomen is soft, nontender and nondistended. Active bowel sounds present in all 4 abdominal quadrants. No guarding rigidity. No organomegaly appreciated. - Genitourinary Deferred - Rectum Deferred - Integumentary Skin is warm and dry, no cyanosis or clubbing. Pale in color. no rash, no growths - Neurologic No focal deficits. normal coordination - Musculoskeletal Moves all 4 extremities with equal strength bilateral. - Psychiatric Periods of forgetfulness and trouble forming sentences at times, chronic oriented to time, oriented to person, oriented to place, speech is normal Results - Labs 07/12/22 10:00 07/12/22 10:00 Abnormal Lab Results - Last 24 Hours (Table) 07/12/22 07/12/22 07/12/22 Range/Units 10:00 10:00 10:00 RBC 3.25 L (4.30-5.90) m/uL Hgb 10.8 L (13.0-17.5) gm/dL Hct 31.8 L (39.0-53.0) % PT 12.5 H (9.0-12.0) sec INR 1.2 H (<1.2) Sodium (137-145) mmol/L Carbon Dioxide (22-30) mmol/L BUN (9-20) mg/dL Creatinine (0.66-1.25) mg/dL Glucose (74-99) mg/dL Calcium (8.4-10.2) mg/dL Magnesium (1.6-2.3) mg/dL AST (17-59) U/L ALT (4-49) U/L Troponin I (0.000-0.034) ng/mL Total Protein (6.3-8.2) g/dL Albumin (3.5-5.0) g/dL Urine Protein 1+ H (Negative) Hyaline Casts 7 H (0-2) /lpf Urine Mucus Occasional H (None) /hpf 07/12/22 07/12/22 07/12/22 Range/Units 10:00 10:00 12:09 RBC (4.30-5.90) m/uL Hgb (13.0-17.5) gm/dL Hct (39.0-53.0) % PT (9.0-12.0) sec INR (<1.2) Sodium 135 L (137-145) mmol/L Carbon Dioxide 18 L (22-30) mmol/L BUN 37 H (9-20) mg/dL Creatinine 1.74 H (0.66-1.25) mg/dL Glucose 194 H (74-99) mg/dL Calcium 8.2 L (8.4-10.2) mg/dL Magnesium 1.5 L (1.6-2.3) mg/dL AST 91 H (17-59) U/L ALT 92 H (4-49) U/L Troponin I 2.580 H* 2.140 H* (0.000-0.034) ng/mL Total Protein 6.1 L (6.3-8.2) g/dL Albumin 3.4 L (3.5-5.0) g/dL Urine Protein (Negative) Hyaline Casts (0-2) /lpf Urine Mucus (None) /hpf Diabetes panel 07/12/22 Range/Units 10:00 Sodium 135 L (137-145) mmol/L Potassium 4.5 (3.5-5.1) mmol/L Chloride 104 (98-107) mmol/L Carbon Dioxide 18 L (22-30) mmol/L BUN 37 H (9-20) mg/dL Creatinine 1.74 H (0.66-1.25) mg/dL Glucose 194 H (74-99) mg/dL Calcium 8.2 L (8.4-10.2) mg/dL AST 91 H (17-59) U/L ALT 92 H (4-49) U/L Alkaline Phosphatase 78 (38-126) U/L Total Protein 6.1 L (6.3-8.2) g/dL Albumin 3.4 L (3.5-5.0) g/dL Calcium panel 07/12/22 Range/Units 10:00 Calcium 8.2 L (8.4-10.2) mg/dL Albumin 3.4 L (3.5-5.0) g/dL Pituitary panel 07/12/22 Range/Units 10:00 Sodium 135 L (137-145) mmol/L Potassium 4.5 (3.5-5.1) mmol/L Chloride 104 (98-107) mmol/L Carbon Dioxide 18 L (22-30) mmol/L BUN 37 H (9-20) mg/dL Creatinine 1.74 H (0.66-1.25) mg/dL Glucose 194 H (74-99) mg/dL Calcium 8.2 L (8.4-10.2) mg/dL Adrenal panel 07/12/22 Range/Units 10:00 Sodium 135 L (137-145) mmol/L Potassium 4.5 (3.5-5.1) mmol/L Chloride 104 (98-107) mmol/L Carbon Dioxide 18 L (22-30) mmol/L BUN 37 H (9-20) mg/dL Creatinine 1.74 H (0.66-1.25) mg/dL Glucose 194 H (74-99) mg/dL Calcium 8.2 L (8.4-10.2) mg/dL Total Bilirubin 0.9 (0.2-1.3) mg/dL AST 91 H (17-59) U/L ALT 92 H (4-49) U/L Alkaline Phosphatase 78 (38-126) U/L Total Protein 6.1 L (6.3-8.2) g/dL Albumin 3.4 L (3.5-5.0) g/dL - Imaging Chest x-ray: report reviewed, image reviewed EKG: image reviewed Assessment and Plan Assessment: 1. New-onset paroxysmal atrial fibrillation with RVR, currently normal sinus rhythm 2. Acute congestive heart failure with borderline normal systolic function and an ejection fraction of 50-55%, proBNP on admission 16,600 3. Acute kidney injury, BUN 37, creatinine 1.74 4. Coronary artery disease, status post stenting of the LAD on 07/04/2022, on Plavix 5. Moderate to severe mitral valve regurgitation and basal inferior wall pseudoaneurysm on transthoracic 2-D echocardiogram today [facility] 6. History of STEMI on 07/01/2022, troponins elevated on admission 2.580 7. Hypertension 8. Dyslipidemia 9. Diabetes mellitus type 2 10. Remote history of pulmonary embolus on Eliquis for anticoagulation 11. History of CVA in 2016 and in 2019 12. History of cerebral aneurysm, status post stenting in 2019 13. Irritable bowel syndrome 14. Benign prostatic hypertrophy 15. COPD 16. GERD 17. Remote history of nicotine dependence, quit smoking 52 years ago Plan: The patient was seen and examined at his bedside in the emergency department. His chart and diagnostics were reviewed. Transthoracic 2-D echocardiogram results completed here at the hospital remain pending. Discussed the case in detail with Dr. Pedro Ayon from cardiothoracic surgery. For further evaluation recommend transesophageal echocardiogram to further evaluate his mitral valve and pseudoaneurysm. The patient is status post PCI of his LAD on 07/04/2022 and is currently on Plavix. The patient is also on Eliquis for history of pulmonary embolus. Continue to maximize medical management with aspirin, statin and beta florentino. Medical management other comorbidities per primary care service and cardiology. More recommendations to follow based on patient's clinical course. Thank you for this consult and we look forward to working with you in the care of this patient. I have personally seen and examined the patient, performed the documentation and the assessment and plan as written. 30 minutes spent on the visit . David CAMPBELL
--- NOTE | 2022-07-12 17:53 | CONS ---
CONSULTATION HISTORY OF PRESENT ILLNESS: This patient was seen by Dr. Junior in the office, who had an echocardiogram and was advised to go to the emergency room. He has a known history of CAD, presented with an acute inferior OH rather late probably to the [facility] and was transferred to [facility], and there, they performed a PCI of RCA which was unsuccessful. They could not cross the lesion, and 2 days later on July 04, they did LAD PCI, and the patient was discharged. He came in to see Dr. Junior today, was found to be in atrial fibrillation with moderately rapid ventricular rate and was sent to the emergency room. I saw him in the ER. After arrival, he converted to sinus rhythm. He feels better. His chest pain has resolved. His heart rate is about 84, sinus. Blood pressure is 96/60. He is resting comfortably without symptoms. Apparently, echo revealed a pseudoaneurysm involving the inferior wall, where he had an OH, and this is of some concern; and therefore, Dr. Junior is going to talk to Dr. Pedro Ayon from Cardiac Surgery. We will do another full echo here in the emergency room. I discussed with the patient and and suggested that we will resume his Eliquis and Plavix and also his beta-florentino for rate control, and based on clinical course, we will make further recommendations, and I will seek further input from Dr. Ayon. PAST MEDICAL HISTORY: 1. Recent hospitalization with acute inferior OH to [facility] followed by unsuccessful PCI of RCA, and 2 days later on July 04, had PCI of LAD. 2. Diabetes. 3. Hypertension. 4. Hyperlipidemia. 5. Known history of paroxysmal atrial fibrillation. PHYSICAL EXAMINATION: VITAL SIGNS: Blood pressure is 96/60. Pulse rate is about 84, regular. NECK: JVD 1 cm. No carotid bruit. HEART: S1 and S2 heard normally. Holosystolic murmur at the apex is audible. LUNGS: Reveal bilateral decent air entry with fine basal rales. ABDOMEN: Soft and nontender. EXTREMITIES: Lower extremities reveal diminished pulses. CENTRAL NERVOUS SYSTEM: Grossly within normal limits. IMPRESSION: 1. Atrial fibrillation with rapid ventricular rate, converted to sinus rhythm. 2. Coronary artery disease with a recent inferior myocardial infarction, unsuccessful percutaneous coronary intervention of right coronary artery and then had percutaneous coronary intervention of left anterior descending successfully on July 04. 3. Hypertension. 4. Diabetes. 5. Hyperlipidemia. RECOMMENDATIONS: Dr. Junior saw the patient in the office and performed an echo, which revealed possible inferior pseudoaneurysm involving the inferior wall. I will request Dr. Ayon to see the patient in this regard as well, and we will do an echocardiogram. Same medications will be resumed. Based on clinical course, we will make further recommendations. Prognosis is guarded. MMMEGAN / SAHRAN: [id number] /
[2022-07-12 18:06] LABS: Basophils % (A) 0 %; Eosinophils # (A) 0.1 k/uL (0-0.7); Eosinophils % (A) 1 %; HCT 31.8 % (39.0-53.0); HGB 10.1 gm/dL (13.0-17.5); Lymphocytes # (A) 2.3 k/uL (1.0-4.8); Lymphocytes % (A) 26 %; MCH 32.5 pg (25.0-35.0); MCHC 31.8 g/dL (31.0-37.0); MCV 102.2 fL (80.0-100.0); Mean Platelet Volume 8.2; Monocytes # (A) 0.5 k/uL (0-1.0); Monocytes % (A) 6 %; Neutrophils # (A) 5.9 k/uL (1.3-7.7); Neutrophils % (A) 66 %; Platelet Count 241 k/uL (150-450); RBC 3.11 m/uL (4.30-5.90); RDW 11.9 % (11.5-15.5); WBC 9.1 k/uL (3.8-10.6)
[2022-07-12] MEDS: NOREPINEPHRINE 4 MG in SODIUM CHLORIDE 0.9% 250 ML IV SCH (18:08)
[2022-07-12 18:24] LABS: Magnesium 2.1 mg/dL (1.6-2.3); Potassium 4.6 mmol/L (3.5-5.1)
[2022-07-12] MEDS ORDERED: HEPARIN SODIUM 1,000 UN/ML (10ML VL) IV ONE (18:37)
[2022-07-12] MEDS: HEPARIN SOD,PORK IN 0.45% NACL 25,000 UNIT in 0.45% NACL 1 250ML.BAG IV SCH (18:57)
[2022-07-12] MEDS ORDERED: DEXTROSE 50% SYRINGE 50 ML IVP PRN ×2 (19:23)
[2022-07-12 20:07] LABS: Glucose,Whole Blood 153 mg/dL (70-110)
[2022-07-12] MEDS: SYMBICORT 160-4.5 MCG INHALER INHALATION SCH (20:23)
[2022-07-12] MEDS: ATORVASTATIN 80 MG TAB PO SCH (20:55)
[2022-07-12] MEDS: ACYCLOVIR 200 MG CAP PO SCH (20:55)
[2022-07-12] MEDS: VIT A,C & E-LUTEIN-MINERALS 1 EACH TAB PO SCH (20:55)
[2022-07-12] MEDS: METOPROLOL TARTRATE 25 MG TAB PO SCH (20:55)
[2022-07-12] MEDS: FLUTICASONE 50MCG/SPRAY NASAL 16GM EA NOSTRIL SCH (20:56)
[2022-07-12] MEDS: ZINC SULFATE 220 MG CAP PO SCH (20:56)
[2022-07-12] MEDS: LATANOPROST 0.005% OPHTH DROPS 2.5 ML BTL BOTH EYES SCH (20:56)
[2022-07-12] MEDS: INSULIN ASPART (NovoLOG) 100 UNIT/ML VIAL SQ SCH (20:57)
[2022-07-12] MEDS ORDERED: APIXABAN 5 MG TAB PO SCH (21:00)
[2022-07-12] MEDS ORDERED: metFORMIN 500 MG TAB PO SCH (21:00)
[2022-07-12] MEDS ORDERED: lisinopriL 5 MG TAB PO SCH (21:00)
[2022-07-12] MEDS ORDERED: lisinopriL 20 MG TAB PO SCH (21:00)
[2022-07-12] MEDS ORDERED: NON FORMULARY DRUG (Glucosamine Sulfate [Glucosamine Sulfate] 1,000 MG Tablet) PO SCH (21:00)
[2022-07-12] MEDS ORDERED: ONDANSETRON 4 MG/2 ML VIAL IVP STA (21:46)
[2022-07-12 22:01] LABS: Glucose,Whole Blood 178 mg/dL (70-110)
[2022-07-13] MEDS: HEPARIN SODIUM 1,000 UN/ML (10ML VL) IV PRN ×2 (00:33→08:01)
[2022-07-13 01:05] LABS: Basophils % (A) 0 %; Eosinophils % (A) 0 %; HCT 30.9 % (39.0-53.0); HGB 10.2 gm/dL (13.0-17.5); Lymphocytes # (A) 0.8 k/uL (1.0-4.8); Lymphocytes % (A) 8 %; MCH 33.1 pg (25.0-35.0); MCHC 33.2 g/dL (31.0-37.0); MCV 99.7 fL (80.0-100.0); Mean Platelet Volume 8.5; Monocytes # (A) 0.6 k/uL (0-1.0); Monocytes % (A) 7 %; Neutrophils # (A) 7.9 k/uL (1.3-7.7); Neutrophils % (A) 82 %; Platelet Count 265 k/uL (150-450); RDW 12.4 % (11.5-15.5); WBC 9.6 k/uL (3.8-10.6)
[2022-07-13] MEDS: NOREPINEPHRINE 4 MG in SODIUM CHLORIDE 0.9% 250 ML IV SCH ×2 (05:00→09:13)
[2022-07-13] MEDS: INSULIN ASPART (NovoLOG) 100 UNIT/ML VIAL SQ SCH ×4 (06:20→20:17)
[2022-07-13 06:21] LABS: Glucose,Whole Blood 155 mg/dL (70-110)
[2022-07-13] MEDS: HYDROcodone/APAP 7.5-325MG 1 EACH TAB PO SCH ×3 (06:21→16:53)
[2022-07-13] MEDS ORDERED: PANTOPRAZOLE 40 MG TABLET PO SCH (07:30)
[2022-07-13 07:38] LABS: INR 1.6 (<1.2); Partial Thromboplastin Time 27.2 sec (22.0-30.0); Prothrombin Time 15.8 sec (9.0-12.0)
[2022-07-13] MEDS: IPRATROPIUM 0.5 MG/2.5 ML NEBU INHALATION SCH ×5 (07:55→20:56)
[2022-07-13] MEDS: SYMBICORT 160-4.5 MCG INHALER INHALATION SCH ×2 (07:55→20:56)
[2022-07-13 08:19] LABS: Basophils % (A) 0 %; Eosinophils % (A) 0 %; HCT 30.7 % (39.0-53.0); HGB 9.9 gm/dL (13.0-17.5); Lymphocytes % (A) 7 %; MCH 32.9 pg (25.0-35.0); MCHC 32.3 g/dL (31.0-37.0); MCV 101.7 fL (80.0-100.0); Mean Platelet Volume 8.1; Monocytes # (A) 0.8 k/uL (0-1.0); Monocytes % (A) 6 %; Neutrophils # (A) 11.7 k/uL (1.3-7.7); Neutrophils % (A) 85 %; Platelet Count 256 k/uL (150-450); RBC 3.02 m/uL (4.30-5.90); WBC 13.8 k/uL (3.8-10.6)
--- NOTE | 2022-07-13 08:29 | P.PN ---
Subjective Progress Note Date: 07/13/22 Principal diagnosis: Moderate mitral mitral valve regurgitation, inferobasal aneurysm, possible small ventricular septal defect, acute heart failure with mildly reduced LV dysfunct ion, new-onset paroxysmal atrial fibrillation with rapid ventricular response, acute kidney injury. 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 He denies any chest pain or current shortness of breath. Remains in sinus rhythm with heart rate in the 90s. Blood pressure marginal, currently on IV Levophed. Patient was on Plavix and Eliquis at home, it is unclear if he take his doses yesterday morning prior to coming to the emergency room. Reports he has not seen a dentist in about 3 years, he does have bad dentition. Remains on aspirin, statin, IV Lasix, IV heparin, IV Levophed for blood pressure support. To be seen and evaluated by Dr. Ayon. Objective - Vital Signs Vital signs: Vital Signs Temp 98.8 F 07/13/22 04:00 Pulse 92 07/13/22 07:00 Resp 10 L 07/13/22 07:00 BP 100/68 07/13/22 06:45 Pulse Ox 94 L 07/13/22 07:00 FiO2 2 07/12/22 21:00 Intake & Output 07/12/22 07/13/22 07/13/22 18:59 06:59 18:59 Intake Total 638.616 5505.424 Output Total 0 460 0 Balance 104.335 655.424 0 Weight 89.811 kg 89.8 kg Intake: Intake, IV Titration 104.335 665.424 Amount Heparin Sod,Pork in 0.45% 105.493 NaCl 25,000 unit In 0.45 % NaCl 1 250ml.bag @ 11.1 UNITS/KG/HR 9.969 mls/hr IV .Q24H [facility] Rx#: [id number] Norepinephrine 4 mg In 4.335 259.931 Sodium Chloride 0.9% 250 ml @ 0.03 MCG/KG/MIN 10. 265 mls/hr IV .Q24H [facility] Rx#:[id number] Sodium Chloride 0.9% 1, 100 300 000 ml @ 100 mls/hr IV . Q10H [facility] Rx#:[id number] Oral 450 Output: Urine 0 450 0 Emesis 10 - Exam CONSTITUTIONAL: Appears comfortable, cooperative, no acute distress RESPIRATORY: Lungs sounds diminished bilaterally. Respirations even, nonlabored. Currently on 4 L nasal cannula with oxygen saturation 94% CARDIOVASCULAR: S1, S2 present, systolic murmur present. Regular rate and rhythm, sinus rhythm on telemetry. Palpable peripheral pulses bilaterally. No edema present. No calf pain or tenderness noted. GASTROINTESTINAL: Abdomen soft, nontender, nondistended. Active bowel sounds present 4 quadrants. Tolerating diet GENITOURINARY: Continues to void INTEGUMENTARY: Skin is warm and dry NEUROLOGIC: Cranial nerves II through XII intact MUSKULOSKELETAL: Able to move all extremities, strength equal bilaterally PSYCHIATRIC: Alert and oriented to person place and time although a bit forgetful, appropriate affect - Allied health notes Allied health notes reviewed: nursing - Labs CBC & Chem 7: 07/13/22 07:30 07/12/22 17:25 Labs: Abnormal Lab Results - Last 24 Hours (Table) 07/12/22 07/12/22 07/12/22 Range/Units 10:00 10:00 10:00 RBC 3.25 L (4.30-5.90) m/uL Hgb 10.8 L (13.0-17.5) gm/dL Hct 31.8 L (39.0-53.0) % MCV (80.0-100.0) fL Neutrophils # (1.3-7.7) k/uL Lymphocytes # (1.0-4.8) k/uL PT 12.5 H (9.0-12.0) sec INR 1.2 H (<1.2) APTT (22.0-30.0) sec Sodium (137-145) mmol/L Carbon Dioxide (22-30) mmol/L BUN (9-20) mg/dL Creatinine (0.66-1.25) mg/dL Glucose (74-99) mg/dL POC Glucose (mg/dL) (70-110) mg/dL Calcium (8.4-10.2) mg/dL Magnesium (1.6-2.3) mg/dL AST (17-59) U/L ALT (4-49) U/L Troponin I (0.000-0.034) ng/mL Total Protein (6.3-8.2) g/dL Albumin (3.5-5.0) g/dL Urine Protein 1+ H (Negative) Hyaline Casts 7 H (0-2) /lpf Urine Mucus Occasional H (None) /hpf 07/12/22 07/12/22 07/12/22 Range/Units 10:00 10:00 12:09 RBC (4.30-5.90) m/uL Hgb (13.0-17.5) gm/dL Hct (39.0-53.0) % MCV (80.0-100.0) fL Neutrophils # (1.3-7.7) k/uL Lymphocytes # (1.0-4.8) k/uL PT (9.0-12.0) sec INR (<1.2) APTT (22.0-30.0) sec Sodium 135 L (137-145) mmol/L Carbon Dioxide 18 L (22-30) mmol/L BUN 37 H (9-20) mg/dL Creatinine 1.74 H (0.66-1.25) mg/dL Glucose 194 H (74-99) mg/dL POC Glucose (mg/dL) (70-110) mg/dL Calcium 8.2 L (8.4-10.2) mg/dL Magnesium 1.5 L (1.6-2.3) mg/dL AST 91 H (17-59) U/L ALT 92 H (4-49) U/L Troponin I 2.580 H* 2.140 H* (0.000-0.034) ng/mL Total Protein 6.1 L (6.3-8.2) g/dL Albumin 3.4 L (3.5-5.0) g/dL Urine Protein (Negative) Hyaline Casts (0-2) /lpf Urine Mucus (None) /hpf 07/12/22 07/12/22 07/12/22 Range/Units 16:25 16:42 17:22 RBC (4.30-5.90) m/uL Hgb (13.0-17.5) gm/dL Hct (39.0-53.0) % MCV (80.0-100.0) fL Neutrophils # (1.3-7.7) k/uL Lymphocytes # (1.0-4.8) k/uL PT (9.0-12.0) sec INR (<1.2) APTT (22.0-30.0) sec Sodium (137-145) mmol/L Carbon Dioxide (22-30) mmol/L BUN (9-20) mg/dL Creatinine (0.66-1.25) mg/dL Glucose (74-99) mg/dL POC Glucose (mg/dL) 188 H 163 H (70-110) mg/dL Calcium (8.4-10.2) mg/dL Magnesium (1.6-2.3) mg/dL AST (17-59) U/L ALT (4-49) U/L Troponin I 2.150 H* (0.000-0.034) ng/mL Total Protein (6.3-8.2) g/dL Albumin (3.5-5.0) g/dL Urine Protein (Negative) Hyaline Casts (0-2) /lpf Urine Mucus (None) /hpf 07/12/22 07/12/22 07/12/22 Range/Units 17:25 20:06 21:59 RBC 3.11 L (4.30-5.90) m/uL Hgb 10.1 L (13.0-17.5) gm/dL Hct 31.8 L (39.0-53.0) % MCV 102.2 H (80.0-100.0) fL Neutrophils # (1.3-7.7) k/uL Lymphocytes # (1.0-4.8) k/uL PT (9.0-12.0) sec INR (<1.2) APTT (22.0-30.0) sec Sodium (137-145) mmol/L Carbon Dioxide (22-30) mmol/L BUN (9-20) mg/dL Creatinine (0.66-1.25) mg/dL Glucose (74-99) mg/dL POC Glucose (mg/dL) 153 H 178 H (70-110) mg/dL Calcium (8.4-10.2) mg/dL Magnesium (1.6-2.3) mg/dL AST (17-59) U/L ALT (4-49) U/L Troponin I (0.000-0.034) ng/mL Total Protein (6.3-8.2) g/dL Albumin (3.5-5.0) g/dL Urine Protein (Negative) Hyaline Casts (0-2) /lpf Urine Mucus (None) /hpf 07/12/22 07/13/22 07/13/22 Range/Units 23:55 00:00 06:19 RBC 3.10 L (4.30-5.90) m/uL Hgb 10.2 L (13.0-17.5) gm/dL Hct 30.9 L (39.0-53.0) % MCV (80.0-100.0) fL Neutrophils # 7.9 H (1.3-7.7) k/uL Lymphocytes # 0.8 L (1.0-4.8) k/uL PT (9.0-12.0) sec INR (<1.2) APTT 35.9 H (22.0-30.0) sec Sodium (137-145) mmol/L Carbon Dioxide (22-30) mmol/L BUN (9-20) mg/dL Creatinine (0.66-1.25) mg/dL Glucose (74-99) mg/dL POC Glucose (mg/dL) 155 H (70-110) mg/dL Calcium (8.4-10.2) mg/dL Magnesium (1.6-2.3) mg/dL AST (17-59) U/L ALT (4-49) U/L Troponin I (0.000-0.034) ng/mL Total Protein (6.3-8.2) g/dL Albumin (3.5-5.0) g/dL Urine Protein (Negative) Hyaline Casts (0-2) /lpf Urine Mucus (None) /hpf 07/13/22 Range/Units 06:30 RBC (4.30-5.90) m/uL Hgb (13.0-17.5) gm/dL Hct (39.0-53.0) % MCV (80.0-100.0) fL Neutrophils # (1.3-7.7) k/uL Lymphocytes # (1.0-4.8) k/uL PT 15.8 H (9.0-12.0) sec INR 1.6 H (<1.2) APTT (22.0-30.0) sec Sodium (137-145) mmol/L Carbon Dioxide (22-30) mmol/L BUN (9-20) mg/dL Creatinine (0.66-1.25) mg/dL Glucose (74-99) mg/dL POC Glucose (mg/dL) (70-110) mg/dL Calcium (8.4-10.2) mg/dL Magnesium (1.6-2.3) mg/dL AST (17-59) U/L ALT (4-49) U/L Troponin I (0.000-0.034) ng/mL Total Protein (6.3-8.2) g/dL Albumin (3.5-5.0) g/dL Urine Protein (Negative) Hyaline Casts (0-2) /lpf Urine Mucus (None) /hpf - Imaging and Cardiology Chest x-ray: report reviewed, image reviewed Assessment and Plan Assessment: 1. Moderate mitral mitral valve regurgitation 2. Inferobasal aneurysm 3. Possible small ventricular septal defect 4. Acute heart failure with mildly reduced LV dysfunction, EF 40-45%, proBNP of admission 16,600 5. New-onset paroxysmal atrial fibrillation with rapid ventricular response, currently in sinus rhythm 6. Acute kidney injury 7. 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 Hypertension, currently hypotensive on IV Levophed 9. Hyperlipidemia, treated 10. Type 2 diabetes, on oral medication 11. Remote pulmonary embolism on Eliquis for anticoagulation 12. CVA in 2015 and 2019 13. Cerebral aneurysm status post stenting in 2019 14. Previous tobacco dependence 15. COPD 16. BPH 17. IBS 18. GERD Plan: 1. Continue to maximize medical therapy with aspirin, statin. Beta florentino on hold per cardiology. Continue to hold Eliquis, continue IV heparin. Further recommendations to be made about Plavix 2. Wean levo as tolerated 3. Wean O2 as tolerated. Bronchodilators per pulmonology 4. Increase activity as tolerated 5. Will review the case with Dr. Ayon and make further recommendations as appropriate 6. Medical management of the comorbidities per internal medicine, cardiology, pulmonology
--- NOTE | 2022-07-13 08:36 | P.PN ---
Subjective HISTORY OF PRESENTING ILLNESS Patient is pleasant 77-year-old male with history of hypertension and hyperlipidemia pulmonary embolism on anticoagulation, cerebral aneurysm status post stenting, diabetes mellitus type 2, CVA with right-sided weakness, COPD, irritable bowel syndrome and CAD status post STEMI. He had STEMI 07/01/2022 with finding of multivessel disease and stenting of LAD with inability to perform stenting of the RCA. He started noticing chest pain on Sunday continuing through Sunday when he saw Dr. Coppola in the office. Dr. Coppola performed an echo which showed concern of pseudoaneurysm and therefore was recommended to go to the ER. He was noted to be tachycardic with concern of A. fib however appeared to be P waves and possible multifocal atrial tachycardia. He was given metoprolol with improvement in heart rates and chest pain resolved. He does still Have continued shortness of breath. 07/13/2022 Echocardiogram performed with ejection fraction 40-45% with concern of VSD. Echocardiogram reviewed with turbulent blood flow and right ventricle and murmur consistent with VSD. He currently remains on norepinephrine at 12. Denies any lightheadedness or dizziness. Blood pressure is borderline in the 80s over 60s. PHYSICAL EXAMINATION Vital signs reviewed. CONSTITUTIONAL: No apparent distress. HEENT: Head is normocephalic. Pupils are equal, round. Sclerae anicteric. Mucous membranes of the mouth are moist. No JVD. No carotid bruit. CHEST EXAMINATION: Lungs are clear to auscultation. No chest wall tenderness is noted on palpation or with deep breathing. HEART EXAMINATION: Regular rate and rhythm. S1, S2 heard. +3/6 systolic murmur, no gallops or rub. ABDOMEN: Soft, nontender. Positive bowel sounds. EXTREMITIES: 2+ peripheral pulses, no lower extremity edema and no calf tenderness. NEUROLOGIC EXAMINATION: Patient is awake, alert and oriented x3. ASSESSMENT 1. CAD status post PCI LAD 07/04/2022 with residual RCA disease unable to be revascularized 2. Turbulent flow and right ventricle and holosystolic murmur consistent with VSD 3. Chest pain, likely related to VSD 4. Cardiogenic shock likely related to VSD 5. Inferior aneurysm, most recent echo does not appear consistent with pseudoaneurysm 6. Elevated troponin, likely still residual from STEMI 07/01/2022 7. Hypotension related to cardiogenic shock 8. Acute kidney injury, likely cardiorenal 9. Mitral regurgitation 10. Irregular tachycardia on admission, appears more consistent with multifocal atrial tachycardia versus atrial fibrillation, currently sinus 11. Cardiomyopathy EF 40-45% 12. History of cerebral aneurysm status post stenting 2019 13. History of pulmonary embolism status post anticoagulation 14. History of hypertension 15. Diabetes mellitus type 2 PLAN Echocardiogram reviewed with findings consistent with VSD. At this time with patient on vasopressors do not feel DG will add much more information. Await cardiothoracic surgery recommendations. If felt high risk may consider transfer to tertiary center for option of percutaneous approach. Prognosis guarded. Objective - Vital Signs Vital signs: Vital Signs Temp 98.2 F 07/13/22 08:00 Pulse 96 07/13/22 08:08 Resp 15 07/13/22 08:08 BP 85/63 07/13/22 08:00 Pulse Ox 95 07/13/22 08:00 FiO2 2 07/12/22 21:00 Intake & Output 07/12/22 07/13/22 07/13/22 18:59 06:59 18:59 Intake Total 710.284 7539.424 87.453 Output Total 0 460 0 Balance 104.335 655.424 87.453 Weight 89.811 kg 89.8 kg Intake: Intake, IV Titration 104.335 665.424 87.453 Amount Heparin Sod,Pork in 0.45% 105.493 87.453 NaCl 25,000 unit In 0.45 % NaCl 1 250ml.bag @ 11.1 UNITS/KG/HR 9.969 mls/hr IV .Q24H [facility] Rx#: [id number] Norepinephrine 4 mg In 4.335 259.931 Sodium Chloride 0.9% 250 ml @ 0.03 MCG/KG/MIN 10. 265 mls/hr IV .Q24H [facility] Rx#:[id number] Sodium Chloride 0.9% 1, 100 300 000 ml @ 100 mls/hr IV . Q10H [facility] Rx#:[id number] Oral 450 Output: Urine 0 450 0 Emesis 10 - Labs CBC & Chem 7: 07/13/22 07:30 07/12/22 17:25 Labs: Abnormal Lab Results - Last 24 Hours (Table) 07/12/22 07/12/22 07/12/22 Range/Units 10:00 10:00 10:00 WBC (3.8-10.6) k/uL RBC 3.25 L (4.30-5.90) m/uL Hgb 10.8 L (13.0-17.5) gm/dL Hct 31.8 L (39.0-53.0) % MCV (80.0-100.0) fL Neutrophils # (1.3-7.7) k/uL Lymphocytes # (1.0-4.8) k/uL PT 12.5 H (9.0-12.0) sec INR 1.2 H (<1.2) APTT (22.0-30.0) sec Sodium (137-145) mmol/L Carbon Dioxide (22-30) mmol/L BUN (9-20) mg/dL Creatinine (0.66-1.25) mg/dL Glucose (74-99) mg/dL POC Glucose (mg/dL) (70-110) mg/dL Calcium (8.4-10.2) mg/dL Magnesium (1.6-2.3) mg/dL AST (17-59) U/L ALT (4-49) U/L Troponin I (0.000-0.034) ng/mL Total Protein (6.3-8.2) g/dL Albumin (3.5-5.0) g/dL Urine Protein 1+ H (Negative) Hyaline Casts 7 H (0-2) /lpf Urine Mucus Occasional H (None) /hpf 07/12/22 07/12/22 07/12/22 Range/Units 10:00 10:00 12:09 WBC (3.8-10.6) k/uL RBC (4.30-5.90) m/uL Hgb (13.0-17.5) gm/dL Hct (39.0-53.0) % MCV (80.0-100.0) fL Neutrophils # (1.3-7.7) k/uL Lymphocytes # (1.0-4.8) k/uL PT (9.0-12.0) sec INR (<1.2) APTT (22.0-30.0) sec Sodium 135 L (137-145) mmol/L Carbon Dioxide 18 L (22-30) mmol/L BUN 37 H (9-20) mg/dL Creatinine 1.74 H (0.66-1.25) mg/dL Glucose 194 H (74-99) mg/dL POC Glucose (mg/dL) (70-110) mg/dL Calcium 8.2 L (8.4-10.2) mg/dL Magnesium 1.5 L (1.6-2.3) mg/dL AST 91 H (17-59) U/L ALT 92 H (4-49) U/L Troponin I 2.580 H* 2.140 H* (0.000-0.034) ng/mL Total Protein 6.1 L (6.3-8.2) g/dL Albumin 3.4 L (3.5-5.0) g/dL Urine Protein (Negative) Hyaline Casts (0-2) /lpf Urine Mucus (None) /hpf 07/12/22 07/12/22 07/12/22 Range/Units 16:25 16:42 17:22 WBC (3.8-10.6) k/uL RBC (4.30-5.90) m/uL Hgb (13.0-17.5) gm/dL Hct (39.0-53.0) % MCV (80.0-100.0) fL Neutrophils # (1.3-7.7) k/uL Lymphocytes # (1.0-4.8) k/uL PT (9.0-12.0) sec INR (<1.2) APTT (22.0-30.0) sec Sodium (137-145) mmol/L Carbon Dioxide (22-30) mmol/L BUN (9-20) mg/dL Creatinine (0.66-1.25) mg/dL Glucose (74-99) mg/dL POC Glucose (mg/dL) 188 H 163 H (70-110) mg/dL Calcium (8.4-10.2) mg/dL Magnesium (1.6-2.3) mg/dL AST (17-59) U/L ALT (4-49) U/L Troponin I 2.150 H* (0.000-0.034) ng/mL Total Protein (6.3-8.2) g/dL Albumin (3.5-5.0) g/dL Urine Protein (Negative) Hyaline Casts (0-2) /lpf Urine Mucus (None) /hpf 07/12/22 07/12/22 07/12/22 Range/Units 17:25 20:06 21:59 WBC (3.8-10.6) k/uL RBC 3.11 L (4.30-5.90) m/uL Hgb 10.1 L (13.0-17.5) gm/dL Hct 31.8 L (39.0-53.0) % MCV 102.2 H (80.0-100.0) fL Neutrophils # (1.3-7.7) k/uL Lymphocytes # (1.0-4.8) k/uL PT (9.0-12.0) sec INR (<1.2) APTT (22.0-30.0) sec Sodium (137-145) mmol/L Carbon Dioxide (22-30) mmol/L BUN (9-20) mg/dL Creatinine (0.66-1.25) mg/dL Glucose (74-99) mg/dL POC Glucose (mg/dL) 153 H 178 H (70-110) mg/dL Calcium (8.4-10.2) mg/dL Magnesium (1.6-2.3) mg/dL AST (17-59) U/L ALT (4-49) U/L Troponin I (0.000-0.034) ng/mL Total Protein (6.3-8.2) g/dL Albumin (3.5-5.0) g/dL Urine Protein (Negative) Hyaline Casts (0-2) /lpf Urine Mucus (None) /hpf 07/12/22 07/13/22 07/13/22 Range/Units 23:55 00:00 06:19 WBC (3.8-10.6) k/uL RBC 3.10 L (4.30-5.90) m/uL Hgb 10.2 L (13.0-17.5) gm/dL Hct 30.9 L (39.0-53.0) % MCV (80.0-100.0) fL Neutrophils # 7.9 H (1.3-7.7) k/uL Lymphocytes # 0.8 L (1.0-4.8) k/uL PT (9.0-12.0) sec INR (<1.2) APTT 35.9 H (22.0-30.0) sec Sodium (137-145) mmol/L Carbon Dioxide (22-30) mmol/L BUN (9-20) mg/dL Creatinine (0.66-1.25) mg/dL Glucose (74-99) mg/dL POC Glucose (mg/dL) 155 H (70-110) mg/dL Calcium (8.4-10.2) mg/dL Magnesium (1.6-2.3) mg/dL AST (17-59) U/L ALT (4-49) U/L Troponin I (0.000-0.034) ng/mL Total Protein (6.3-8.2) g/dL Albumin (3.5-5.0) g/dL Urine Protein (Negative) Hyaline Casts (0-2) /lpf Urine Mucus (None) /hpf 07/13/22 07/13/22 Range/Units 06:30 07:30 WBC 13.8 H (3.8-10.6) k/uL RBC 3.02 L (4.30-5.90) m/uL Hgb 9.9 L (13.0-17.5) gm/dL Hct 30.7 L (39.0-53.0) % MCV 101.7 H (80.0-100.0) fL Neutrophils # 11.7 H (1.3-7.7) k/uL Lymphocytes # (1.0-4.8) k/uL PT 15.8 H (9.0-12.0) sec INR 1.6 H (<1.2) APTT (22.0-30.0) sec Sodium (137-145) mmol/L Carbon Dioxide (22-30) mmol/L BUN (9-20) mg/dL Creatinine (0.66-1.25) mg/dL Glucose (74-99) mg/dL POC Glucose (mg/dL) (70-110) mg/dL Calcium (8.4-10.2) mg/dL Magnesium (1.6-2.3) mg/dL AST (17-59) U/L ALT (4-49) U/L Troponin I (0.000-0.034) ng/mL Total Protein (6.3-8.2) g/dL Albumin (3.5-5.0) g/dL Urine Protein (Negative) Hyaline Casts (0-2) /lpf Urine Mucus (None) /hpf
[2022-07-13] MEDS ORDERED: ASCORBIC ACID 500 MG TAB PO SCH (09:00)
[2022-07-13] MEDS ORDERED: MULTIVITAMINS, THERA 1 EACH TAB PO SCH (09:00)
[2022-07-13] MEDS ORDERED: ASPIRIN 81 MG PO SCH (09:00)
[2022-07-13] MEDS ORDERED: CHOLECALCIFEROL 25 MCG (1000 IU) TABLET PO SCH (09:00)
[2022-07-13] MEDS ORDERED: TAMSULOSIN 0.4 MG CAP.ER.24H PO SCH (09:00)
[2022-07-13 09:14] LABS: Albumin 3.1 g/dL (3.5-5.0); Calcium 7.6 mg/dL (8.4-10.2); Magnesium 2.1 mg/dL (1.6-2.3); Potassium 5.4 mmol/L (3.5-5.1); Total Bilirubin 1.1 mg/dL (0.2-1.3); Total Protein 6.1 g/dL (6.3-8.2)
[2022-07-13] MEDS: ACYCLOVIR 200 MG CAP PO SCH ×2 (09:18→20:16)
[2022-07-13] MEDS: PREGABALIN 75 MG CAP PO SCH ×2 (09:19→15:47)
[2022-07-13] MEDS: VIT A,C & E-LUTEIN-MINERALS 1 EACH TAB PO SCH ×2 (09:19→20:16)
[2022-07-13] MEDS: CLOPIDOGREL 75 MG TAB PO SCH ×2 (09:41→15:48)
[2022-07-13] MEDS: FLUTICASONE 50MCG/SPRAY NASAL 16GM EA NOSTRIL SCH ×2 (09:41→20:18)
[2022-07-13] MEDS: METOPROLOL TARTRATE 25 MG TAB PO SCH ×2 (09:42→20:16)
[2022-07-13] MEDS: FUROSEMIDE 10 MG/ML 2 ML VIAL IV SCH (09:42)
[2022-07-13] MEDS ORDERED: SODIUM BICARB 8.4% 50 ML SYR (1 MEQ/ML) IV STA (10:58)
--- NOTE | 2022-07-13 11:02 | P.PN ---
Subjective Progress Note Date: 07/13/22 Hospital Course: 77-year-old man with medical history of STEMI with recent stent placement approximately one week ago, hypertension, hyperlipidemia, COPD, BPH presented for evaluation of dyspnea, atrial fibrillation. In the emergency room, patient was afebrile, 90/56, heart rate 108, 98% on room air. CBC shows anemia down to 10.8, otherwise unremarkable. Chemistries show hyponatremia to 135, CO2 of 18, BUN of 37, creatinine of 1.74, glucose of 194, magnesium of 1.5. Liver function test show AST of 91, ALT of 92, protein of 6.1, albumin of 3.4. Troponin was 2.58, down trended to 2.14. BNP was 16,600. Coags show an INR 1.2. UA shows 1+ protein, 7 hyaline casts, otherwise unremarkable. Chest x-ray shows right- sided pleural effusion, bilateral alveolar infiltrates consistent with pulmonary edema with increased pulmonary vasculature. Initial EKG showed atrial fibrillation with RVR, left axis deviation, no signs of active ischemia. Repeat EKG showed sinus tachycardia at a rate of 100 with left axis deviation and left anterior fascicular block. Patient continued to remain hypotensive, was transferred to the ICU for vasopressors. Also there was a concern for pseudo aneurysm cardiology clinic, which was one of the reasons he was sent to the hospital. Subjective: Patient seen and examined at bedside. No acute events overnight. He claims that his shortness of breath is about the same as it was prior to his STEMI. Currently denies any chest pain, abdominal pain, nausea, vomiting, diarrhea, constipation, or urinary complaints. Has a Mcgrath catheter in place. Pertinent positives and negatives as discussed above, a complete review of systems was performed and all other systems are negative. Vitals Signs Reviewed. General: nontoxic, no distress, appears at stated age Derm: warm, dry Head: atraumatic, normocephalic, symmetric Eyes: EOMI, no lid lag, anicteric sclera Mouth: no lip lesion, mucus membranes moist Cardiovascular: S1S2 reg, systolic murmur Lungs: Bilateral rales , no accessory muscle use, supplemental oxygen Abdominal: soft, nontender to palpation, no guarding, no appreciable organomegaly Ext: no gross muscle atrophy, no edema, no contractures Neuro: CN II-XI grossly intact, no focal neuro deficits Psych: Alert, oriented, appropriate affect Data reviewed today: Lab data: WBC 13.8, hemoglobin 9.9, sodium 135, potassium 5.4, bicarbonate 18, BUN 48, creatinine 2.27, AST 6000, ALT 5000, troponin peaked at 2.58 Echocardiogram report reviewed: Mildly impaired LV function of 40-45%, moderate pulmonary hypertension, small ventricular septal defect, moderate MR Assessment and Plan: Patient is currently critically ill, and cardiogenic shock, requiring vasopressors. Active: Cardiogenic shock Ventricular septal defect, new finding CAD status post PCI to LAD Supraventricular tachycardia, unclear if MAT versus A. fib Pulmonary vascular congestion Acute on chronic hypoxic respiratory failure Acute kidney injury, likely cardiorenal Metabolic acidosis Mild hyperkalemia Ischemic hepatitis Moderate pulmonary hypertension Moderate MR -Patient currently on vasopressors, norepinephrine at 0.13 -Cardiology note reviewed: Echocardiogram consistent with VSD, and awaiting cardiothoracic surgery recommendations, may need transfer to tertiary care center for percutaneous approach -Cardiothoracic surgery note reviewed: Continuing discussion with surgeon with regards to possible surgical repair -On aspirin, atorvastatin, and Plavix -On heparin drip, dosed based on APTT, no active bleeding -Metoprolol 25 mg twice a day -Continue supplemental oxygen, continue to wean -On Lasix 20 mg IV daily -Acute kidney injury likely cardiorenal, and ATN from hypotension -Holding lisinopril -Bicarb 50 mEq IV once Chronic: Hyperlipidemia COPD without exacerbation BPH History of a PE History of cerebral aneurysm status post stenting in 2019 Type 2 diabetes History of hypertension DVT ppx: Heparin drip Code status: Full code Anticipated discharge place: Likely transfer Anticipated discharge time: Pending clinical course Objective - Vital Signs Vital signs: Vital Signs Temp 98.2 F 07/13/22 08:00 Pulse 96 07/13/22 10:00 Resp 11 L 07/13/22 10:00 BP 92/66 07/13/22 10:00 Pulse Ox 93 L 07/13/22 10:00 FiO2 2 07/12/22 21:00 Intake & Output 07/12/22 07/13/22 07/13/22 18:59 06:59 18:59 Intake Total 720.250 7521.424 254.264 Output Total 0 460 25 Balance 104.335 655.424 229.264 Weight 89.811 kg 89.8 kg Intake: Intake, IV Titration 104.335 665.424 254.264 Amount Heparin Sod,Pork in 0.45% 105.493 87.453 NaCl 25,000 unit In 0.45 % NaCl 1 250ml.bag @ 11.1 UNITS/KG/HR 9.969 mls/hr IV .Q24H [facility] Rx#: [id number] Norepinephrine 4 mg In 4.335 259.931 166.811 Sodium Chloride 0.9% 250 ml @ 0.03 MCG/KG/MIN 10. 265 mls/hr IV .Q24H [facility] Rx#:[id number] Sodium Chloride 0.9% 1, 100 300 000 ml @ 100 mls/hr IV . Q10H [facility] Rx#:[id number] Oral 450 Output: Urine 0 450 25 Emesis 10 Other: Voiding Method Urinal - Labs CBC & Chem 7: 07/13/22 07:30 07/13/22 08:55 Labs: Abnormal Lab Results - Last 24 Hours (Table) 07/12/22 07/12/22 07/12/22 Range/Units 10:00 12:09 16:25 WBC (3.8-10.6) k/uL RBC (4.30-5.90) m/uL Hgb (13.0-17.5) gm/dL Hct (39.0-53.0) % MCV (80.0-100.0) fL Neutrophils # (1.3-7.7) k/uL Lymphocytes # (1.0-4.8) k/uL PT (9.0-12.0) sec INR (<1.2) APTT (22.0-30.0) sec Sodium (137-145) mmol/L Potassium (3.5-5.1) mmol/L Carbon Dioxide (22-30) mmol/L BUN (9-20) mg/dL Creatinine (0.66-1.25) mg/dL Glucose (74-99) mg/dL POC Glucose (mg/dL) (70-110) mg/dL Calcium (8.4-10.2) mg/dL AST (17-59) U/L ALT (4-49) U/L Alkaline Phosphatase (38-126) U/L Troponin I 2.140 H* 2.150 H* (0.000-0.034) ng/mL Total Protein (6.3-8.2) g/dL Albumin (3.5-5.0) g/dL Urine Protein 1+ H (Negative) Hyaline Casts 7 H (0-2) /lpf Urine Mucus Occasional H (None) /hpf 07/12/22 07/12/22 07/12/22 Range/Units 16:42 17:22 17:25 WBC (3.8-10.6) k/uL RBC 3.11 L (4.30-5.90) m/uL Hgb 10.1 L (13.0-17.5) gm/dL Hct 31.8 L (39.0-53.0) % MCV 102.2 H (80.0-100.0) fL Neutrophils # (1.3-7.7) k/uL Lymphocytes # (1.0-4.8) k/uL PT (9.0-12.0) sec INR (<1.2) APTT (22.0-30.0) sec Sodium (137-145) mmol/L Potassium (3.5-5.1) mmol/L Carbon Dioxide (22-30) mmol/L BUN (9-20) mg/dL Creatinine (0.66-1.25) mg/dL Glucose (74-99) mg/dL POC Glucose (mg/dL) 188 H 163 H (70-110) mg/dL Calcium (8.4-10.2) mg/dL AST (17-59) U/L ALT (4-49) U/L Alkaline Phosphatase (38-126) U/L Troponin I (0.000-0.034) ng/mL Total Protein (6.3-8.2) g/dL Albumin (3.5-5.0) g/dL Urine Protein (Negative) Hyaline Casts (0-2) /lpf Urine Mucus (None) /hpf 07/12/22 07/12/22 07/12/22 Range/Units 20:06 21:59 23:55 WBC (3.8-10.6) k/uL RBC 3.10 L (4.30-5.90) m/uL Hgb 10.2 L (13.0-17.5) gm/dL Hct 30.9 L (39.0-53.0) % MCV (80.0-100.0) fL Neutrophils # 7.9 H (1.3-7.7) k/uL Lymphocytes # 0.8 L (1.0-4.8) k/uL PT (9.0-12.0) sec INR (<1.2) APTT (22.0-30.0) sec Sodium (137-145) mmol/L Potassium (3.5-5.1) mmol/L Carbon Dioxide (22-30) mmol/L BUN (9-20) mg/dL Creatinine (0.66-1.25) mg/dL Glucose (74-99) mg/dL POC Glucose (mg/dL) 153 H 178 H (70-110) mg/dL Calcium (8.4-10.2) mg/dL AST (17-59) U/L ALT (4-49) U/L Alkaline Phosphatase (38-126) U/L Troponin I (0.000-0.034) ng/mL Total Protein (6.3-8.2) g/dL Albumin (3.5-5.0) g/dL Urine Protein (Negative) Hyaline Casts (0-2) /lpf Urine Mucus (None) /hpf 07/13/22 07/13/22 07/13/22 Range/Units 00:00 06:19 06:30 WBC (3.8-10.6) k/uL RBC (4.30-5.90) m/uL Hgb (13.0-17.5) gm/dL Hct (39.0-53.0) % MCV (80.0-100.0) fL Neutrophils # (1.3-7.7) k/uL Lymphocytes # (1.0-4.8) k/uL PT 15.8 H (9.0-12.0) sec INR 1.6 H (<1.2) APTT 35.9 H (22.0-30.0) sec Sodium (137-145) mmol/L Potassium (3.5-5.1) mmol/L Carbon Dioxide (22-30) mmol/L BUN (9-20) mg/dL Creatinine (0.66-1.25) mg/dL Glucose (74-99) mg/dL POC Glucose (mg/dL) 155 H (70-110) mg/dL Calcium (8.4-10.2) mg/dL AST (17-59) U/L ALT (4-49) U/L Alkaline Phosphatase (38-126) U/L Troponin I (0.000-0.034) ng/mL Total Protein (6.3-8.2) g/dL Albumin (3.5-5.0) g/dL Urine Protein (Negative) Hyaline Casts (0-2) /lpf Urine Mucus (None) /hpf 07/13/22 07/13/22 Range/Units 07:30 08:55 WBC 13.8 H (3.8-10.6) k/uL RBC 3.02 L (4.30-5.90) m/uL Hgb 9.9 L (13.0-17.5) gm/dL Hct 30.7 L (39.0-53.0) % MCV 101.7 H (80.0-100.0) fL Neutrophils # 11.7 H (1.3-7.7) k/uL Lymphocytes # (1.0-4.8) k/uL PT (9.0-12.0) sec INR (<1.2) APTT (22.0-30.0) sec Sodium 135 L (137-145) mmol/L Potassium 5.4 H (3.5-5.1) mmol/L Carbon Dioxide 18 L (22-30) mmol/L BUN 48 H (9-20) mg/dL Creatinine 2.27 H (0.66-1.25) mg/dL Glucose 139 H (74-99) mg/dL POC Glucose (mg/dL) (70-110) mg/dL Calcium 7.6 L (8.4-10.2) mg/dL AST 6617 H (17-59) U/L ALT 5099 H (4-49) U/L Alkaline Phosphatase 129 H (38-126) U/L Troponin I (0.000-0.034) ng/mL Total Protein 6.1 L (6.3-8.2) g/dL Albumin 3.1 L (3.5-5.0) g/dL Urine Protein (Negative) Hyaline Casts (0-2) /lpf Urine Mucus (None) /hpf
[2022-07-13] MEDS ORDERED: FUROSEMIDE 10 MG/ML 4 ML VIAL IV STA (11:04)
[2022-07-13 11:35] LABS: Glucose,Whole Blood 141 mg/dL (70-110)
--- NOTE | 2022-07-13 12:07 | P.CNPUL ---
History of Present Illness Consult date: 07/13/22 Requesting physician: Tashi Sanchez Reason for consult: other (ICU management, cardiogenic shock) Chief complaint: New onset atrial fibrillation History of present illness: This is a 77-year-old white male, primarily a patient of Dr. Schultz, and usually sees Dr. Coppola for his cardiac care. Patient is known to have previous history of pulmonary embolism 2 years ago, history of hypertension, dyslipidemia, and history of cerebral aneurysm requiring stenting. History of type 2 diabetes, and previous CVA with right-sided weakness in 2015. Patient had CVA in 2019, and he continued to have some minimal left-sided residual deficit. Patient had remote smoking history, and possibly mild COPD. Recently, the patient was seen at [facility], and he was found to have ST elevation myocardial infarction patient was transferred to [facility], and he underwent unsuccessful stenting of the RCA, but later on he underwent PTCA and PCI stenting of the proximal LAD. On 07/12/2022, patient had a routine follow-up with his utility accounts director as Dr. Coppola and at the time of his evaluation in the office, patient was noted to be in atrial fibrillation which is new onset with RVR. Patient was sent to the emergency room for his cardiac arrhythmia, however by the time he arrived to the ER patient converted to sinus rhythm. Echo revealed a pseudoaneurysm involving the inferior wall hence the patient was admitted initially to the cardiac floor, but since he was hypotensive and required low dose of norepinephrine initially, patient was transferred to the ICU. Since admission to the ICU, patient remains relatively hypotensive, he was seen by Dr. Nair/utility accounts director and he reviewed his echocardiogram which is quite abnormal showing ejection fraction of 40-45% and he seems to be very consistent about his ventricular septal defect more so than anything else. Patient was also seen by cardiac surgery and the recommendation now is to transfer the patient to a tertiary care center. Patient should be considered for VSD repair via percutaneous approach. Labs today are becoming worse with worsening renal status, creatinine is up to 2.27 from 1.74 yesterday. Urine output is marginal. And liver enzymes are extremely elevated with a AST of 6617, ALT of 5099 with relatively normal alkaline phosphatase and normal total bilirubin. This seems to be most likely cardiogenic in nature. During my evaluation, the patient had no symptoms of shortness of breath, patient is on 3 L nasal cannula with O2 sats of 95%, nonetheless he is requiring norepinephrine at 0.13 mcg/kg/m. 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 Short term memory problems since CVA. Hx Covid 1 yr ago, "some trouble with lungs since". Macular degeneration. 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 Enlarged prostate. stemi 07/01/22 with stent placement. Last Myocardial Infarction Date:: 07/01/22 History of Any Multi-Drug Resistant Organisms: None Reported Past Surgical History: Ablation, Cholecystectomy, Heart Catheterization With Stent, Hernia Repair, Orthopedic Surgery Additional Past Surgical History / Comment(s): stemi 07/01/22 with stent placement 07/04/22 Right thumb surgery, bilateral shoulder rotator cuff repairs, bilateral cataract surgery, history of stenting cerebral aneurysm. Past Anesthesia/Blood Transfusion Reactions: No Reported Reaction, Postoperative Nausea & Vomiting (PONV) Date of Last Stent Placement:: 07/04/22 Past Psychological History: No Psychological Hx Reported Smoking Status: Former smoker (Quit smoking 52 years ago) Past Alcohol Use History: None Reported Additional Past Alcohol Use History / Comment(s): Quit smoking 50 yrs ago. Past Drug Use History: None Reported - Past Family History Mother Family Medical History: No Reported History Additional Family Medical History / Comment(s): History of lung and heart problems Father Family Medical History: Congestive Heart Failure (CHF) Additional Family Medical History / Comment(s): Congestive heart failure Medications and Allergies Home Medications Medication Instructions Recorded Confirmed Type Acyclovir 200 mg PO BID 03/21/22 07/12/22 History Apixaban [Eliquis] 5 mg PO BID 03/21/22 07/12/22 History Ascorbic Acid [Vitamin C] 1,000 mg PO DAILY 03/21/22 07/12/22 History Atorvastatin [Lipitor] 80 mg PO HS 03/21/22 07/12/22 History Cinnamon Bark [Cinnamon] 1,000 mg PO BID 03/21/22 07/12/22 History Hydrocodone/Acetaminophen 1 tab PO TID-W/MEALS 03/21/22 07/12/22 History [Hydrocodone/Acetaminophen 7.5-325] Latanoprost/Pf [Latanoprost 0.005% 1 drop BOTH EYES HS 03/21/22 07/12/22 History Eye Drop] Omeprazole 20 mg PO DAILY 03/21/22 07/12/22 History Pregabalin 150 mg PO TID 03/21/22 07/12/22 History Tamsulosin [Flomax] 0.4 mg PO DAILY 03/21/22 07/12/22 History Vit C/E/Zn/Coppr/Lutein/Zeaxan 1 cap PO BID 03/21/22 07/12/22 History [Preservision Areds 2 Softgel] Zinc Gluconate [Zinc] 50 mg PO BID 03/21/22 07/12/22 History lisinopriL [Prinivil] 20 mg PO HS 03/21/22 07/12/22 History methocarbamoL [Methocarbamol] 750 mg PO Q8H PRN 03/21/22 07/12/22 History Alendronate Sodium [Fosamax] 70 mg PO WEEKLY 07/12/22 07/12/22 History Aspirin EC [Ecotrin Low Dose] 81 mg PO DAILY 07/12/22 07/12/22 History Cholecalciferol [Vitamin D3 (25 25 mcg PO DAILY 07/12/22 07/12/22 History Mcg = 1000 Iu)] Dicyclomine [Bentyl] 10 mg PO TID PRN 07/12/22 07/12/22 History Fish Oil/Dha/Epa [Fish Oil 1,200 1 cap PO DAILY 07/12/22 07/12/22 History mg Fish Oil] Fluticasone Nasal [place] [Flonase 1 spr EA NOSTRIL BID 07/12/22 07/12/22 History Nasal [place]] Fluticasone Propion/Salmeterol 1 puff INHALATION RT-BID 07/12/22 07/12/22 History [Wixela 250-50 Inhub] Glucosamine Sulfate 1,500 mg PO BID 07/12/22 07/12/22 History Hydrocortisone Cream 1 applic TOPICAL DAILY PRN 07/12/22 07/12/22 History [Hydrocortisone 2.5% Cream] Hyoscyamine Sulfate [Levsin-Sl] 0.125 mg SL TID PRN 07/12/22 07/12/22 History Ketoconazole 2% Shampoo [Nizoral] 1 applic TOPICAL Q2D PRN 07/12/22 07/12/22 History Multivit-Min/FA/Lycopen/Lutein 1 tab PO DAILY 07/12/22 07/12/22 History [Centrum Silver Tablet] Tiotropium 2.5 Mcg/Puff [Spiriva 2 puff INHALATION RT-DAILY 07/12/22 07/12/22 History Respimat 2.5 Mcg] metFORMIN HCL [Glucophage] 500 mg PO BID 07/12/22 07/12/22 History Allergies Allergy/AdvReac Type Severity Reaction Status Date / Time No Known Allergies Allergy Verified 07/12/22 12:49 Physical Exam Vitals: Vital Signs Temp Pulse Pulse Resp BP BP BP 07/13/22 11:11 97 22 07/13/22 11:02 96 22 07/13/22 11:00 102 H 18 98/80 07/13/22 10:45 95 17 95/65 07/13/22 10:30 95 20 61/42 07/13/22 10:15 95 94/61 07/13/22 10:00 96 11 L 92/66 07/13/22 09:45 97 18 92/62 07/13/22 09:30 95 97/67 07/13/22 09:15 106 H 97/67 07/13/22 09:00 98 24 91/66 07/13/22 08:45 98 110/65 07/13/22 08:30 94 86/60 07/13/22 08:15 94 91/55 07/13/22 08:08 96 15 07/13/22 08:01 95 22 07/13/22 08:00 98.2 F 92 18 85/63 07/13/22 07:45 92 81/59 07/13/22 07:30 92 89/62 07/13/22 07:15 92 85/60 07/13/22 07:00 92 10 L 07/13/22 06:45 90 20 100/68 07/13/22 06:30 92 8 L 103/84 07/13/22 06:15 93 18 91/62 07/13/22 06:00 94 14 89/61 07/13/22 05:45 93 14 89/60 07/13/22 05:30 92 11 L 86/58 07/13/22 05:15 92 24 90/61 07/13/22 05:00 92 24 91/62 07/13/22 04:45 93 14 80/50 07/13/22 04:30 90 16 76/43 07/13/22 04:15 93 15 88/62 07/13/22 04:00 98.8 F 92 16 88/69 07/13/22 03:45 93 14 95/68 07/13/22 03:30 90 28 H 92/65 07/13/22 03:15 97 13 94/64 07/13/22 03:00 96 14 100/68 07/13/22 02:45 99 12 93/65 07/13/22 02:30 98 25 H 101/71 07/13/22 02:15 98 12 88/65 07/13/22 02:00 98 12 94/66 07/13/22 01:45 100 10 L 96/66 07/13/22 01:30 100 14 104/55 07/13/22 01:15 101 H 13 99/69 07/13/22 01:00 101 H 18 91/70 07/13/22 00:45 101 H 18 94/70 07/13/22 00:30 101 H 16 86/49 07/13/22 00:15 100 18 94/67 07/13/22 00:08 101 H 25 H 94/67 07/13/22 00:00 98.6 F 100 24 101/70 07/12/22 23:45 98 30 H 102/68 07/12/22 23:30 102 H 25 H 93/63 07/12/22 23:15 101 H 8 L 90/58 07/12/22 23:00 101 H 4 L 92/63 07/12/22 22:45 101 H 9 L 95/67 07/12/22 22:30 102 H 9 L 96/69 07/12/22 22:15 101 H 5 L 108/75 07/12/22 22:00 104 H 30 H 109/82 07/12/22 21:45 105 H 32 H 102/74 07/12/22 21:30 102 H 17 107/72 07/12/22 21:15 101 H 30 H 110/81 07/12/22 21:00 101 H 14 99/71 07/12/22 20:45 100 19 99/70 07/12/22 20:30 101 H 14 101/69 07/12/22 20:15 98 12 95/82 07/12/22 20:00 98.4 F 98 10 L 100/69 07/12/22 19:45 98 19 94/69 07/12/22 19:30 98 27 H 98/67 07/12/22 19:15 97 25 H 91/66 07/12/22 19:00 96 8 L 91/65 07/12/22 18:00 93 13 93/64 07/12/22 17:24 97.6 F 96 20 88/60 07/12/22 16:15 87 78/58 07/12/22 16:00 75/51 07/12/22 15:45 73/51 78/53 07/12/22 15:30 87 77/49 07/12/22 15:15 89 80/50 07/12/22 15:00 95 81/52 07/12/22 14:45 97.7 F 94 16 85/55 07/12/22 13:58 100 18 90/67 07/12/22 13:20 95 16 92/66 07/12/22 12:40 97.5 F L 98 17 89/63 07/12/22 12:30 98 07/12/22 12:00 101 H 16 92/68 Pulse Ox FiO2 07/13/22 11:11 07/13/22 11:02 07/13/22 11:00 95 07/13/22 10:45 94 L 03/16/23 10:30 94 L 07/13/22 10:15 94 L 07/13/22 10:00 93 L 07/13/22 09:45 96 07/13/22 09:30 07/13/22 09:15 07/13/22 09:00 93 L 07/13/22 08:45 93 L 07/13/22 08:30 95 07/13/22 08:15 95 07/13/22 08:08 07/13/22 08:01 07/13/22 08:00 95 07/13/22 07:45 92 L 07/13/22 07:30 96 07/13/22 07:15 93 L 07/13/22 07:00 94 L 07/13/22 06:45 93 L 07/13/22 06:30 95 07/13/22 06:15 95 07/13/22 06:00 94 L 07/13/22 05:45 94 L 07/13/22 05:30 95 07/13/22 05:15 92 L 07/13/22 05:00 91 L 07/13/22 04:45 95 07/13/22 04:30 94 L 07/13/22 04:15 93 L 07/13/22 04:00 93 L 07/13/22 03:45 93 L 07/13/22 03:30 91 L 07/13/22 03:15 91 L 07/13/22 03:00 92 L 07/13/22 02:45 93 L 07/13/22 02:30 93 L 07/13/22 02:15 93 L 07/13/22 02:00 93 L 07/13/22 01:45 93 L 07/13/22 01:30 92 L 07/13/22 01:15 93 L 07/13/22 01:00 94 L 07/13/22 00:45 93 L 07/13/22 00:30 94 L 07/13/22 00:15 94 L 07/13/22 00:08 94 L 07/13/22 00:00 94 L 07/12/22 23:45 93 L 07/12/22 23:30 92 L 07/12/22 23:15 94 L 07/12/22 23:00 92 L 07/12/22 22:45 92 L 07/12/22 22:30 93 L 07/12/22 22:15 94 L 03/15/23 22:00 94 L 07/12/22 21:45 95 07/12/22 21:30 95 07/12/22 21:15 95 07/12/22 21:00 94 L 2 07/12/22 20:45 95 07/12/22 20:30 95 07/12/22 20:15 96 07/12/22 20:00 96 07/12/22 19:45 96 07/12/22 19:30 96 07/12/22 19:15 96 07/12/22 19:00 95 07/12/22 18:00 96 07/12/22 17:24 97 07/12/22 16:15 07/12/22 16:00 07/12/22 15:45 07/12/22 15:30 07/12/22 15:15 07/12/22 15:00 07/12/22 14:45 94 L 07/12/22 13:58 95 07/12/22 13:20 96 07/12/22 12:40 95 07/12/22 12:30 07/12/22 12:00 95 Intake and Output 07/12/22 07/13/22 07/13/22 22:59 06:59 14:59 Intake Total 980.757 239.002 354.264 Output Total 160 300 33 Balance 820.757 -60.998 321.264 Intake: Intake, IV Titration 530.757 239.002 254.264 Amount Heparin Sod,Pork in 0.45% 29.7 75.793 87.453 NaCl 25,000 unit In 0.45 % NaCl 1 250ml.bag @ 11.1 UNITS/KG/HR 9.969 mls/hr IV .Q24H GIL Rx#: [id number] Norepinephrine 4 mg In 101.057 163.209 166.811 Sodium Chloride 0.9% 250 ml @ 0.03 MCG/KG/MIN 10. 265 mls/hr IV .Q24H GIL Rx#:[id number] Sodium Chloride 0.9% 1, 400 0 000 ml @ 100 mls/hr IV . Q10H STA Rx#:[id number] Oral 450 100 Output: Urine 150 300 33 Emesis 10 Other: Voiding Method Urinal Weight 89.8 kg Physical Exam: Revealed 77-year-old white male in no distress liters nasal cannula Head: Atraumatic, normocephalic. HEENT:[Neck is supple.] [No neck masses.] [No thyromegaly.] [No JVD.] Chest: [Symmetrical chest expansion, diminished breath sounds at the bases no crackles or rhonchi or wheezes Cardiac Exam: [Normal S1 and S2, no S3 gallop, 3/6 systolic murmur throughout the precordium, best heard at the apex and left lower sternal border Abdomen: [Soft, nontender, no megaly, no rebound, no guarding, normal bowel sounds.] Extremities: [No clubbing, no edema, no cyanosis.] Good pulses bilaterally. Neurological Exam: [No focal neurologic deficit.] Alert and oriented 3 Psychiatric: Normal mood affect and normal mental status examination. Skin: No rashes Results - Laboratory Findings CBC and BMP: 07/13/22 07:30 07/13/22 08:55 PT/INR, D-dimer PT 15.8 sec (9.0-12.0) H 07/13/22 06:30 INR 1.6 (<1.2) H 07/13/22 06:30 Abnormal lab findings: Abnormal Labs 07/12/22 07/12/22 07/12/22 10:00 10:00 10:00 WBC RBC 3.25 L Hgb 10.8 L Hct 31.8 L MCV Neutrophils # Lymphocytes # PT 12.5 H INR 1.2 H APTT Sodium Potassium Carbon Dioxide BUN Creatinine Glucose POC Glucose (mg/dL) Calcium Magnesium AST ALT Alkaline Phosphatase Troponin I Total Protein Albumin Urine Protein 1+ H Hyaline Casts 7 H Urine Mucus Occasional H 07/12/22 07/12/22 07/12/22 10:00 10:00 12:09 WBC RBC Hgb Hct MCV Neutrophils # Lymphocytes # PT INR APTT Sodium 135 L Potassium Carbon Dioxide 18 L BUN 37 H Creatinine 1.74 H Glucose 194 H POC Glucose (mg/dL) Calcium 8.2 L Magnesium 1.5 L AST 91 H ALT 92 H Alkaline Phosphatase Troponin I 2.580 H* 2.140 H* Total Protein 6.1 L Albumin 3.4 L Urine Protein Hyaline Casts Urine Mucus 07/12/22 07/12/22 07/12/22 16:25 16:42 17:22 WBC RBC Hgb Hct MCV Neutrophils # Lymphocytes # PT INR APTT Sodium Potassium Carbon Dioxide BUN Creatinine Glucose POC Glucose (mg/dL) 188 H 163 H Calcium Magnesium AST ALT Alkaline Phosphatase Troponin I 2.150 H* Total Protein Albumin Urine Protein Hyaline Casts Urine Mucus 07/12/22 07/12/22 07/12/22 17:25 20:06 21:59 WBC RBC 3.11 L Hgb 10.1 L Hct 31.8 L MCV 102.2 H Neutrophils # Lymphocytes # PT INR APTT Sodium Potassium Carbon Dioxide BUN Creatinine Glucose POC Glucose (mg/dL) 153 H 178 H Calcium Magnesium AST ALT Alkaline Phosphatase Troponin I Total Protein Albumin Urine Protein Hyaline Casts Urine Mucus 07/12/22 07/13/22 07/13/22 23:55 00:00 06:19 WBC RBC 3.10 L Hgb 10.2 L Hct 30.9 L MCV Neutrophils # 7.9 H Lymphocytes # 0.8 L PT INR APTT 35.9 H Sodium Potassium Carbon Dioxide BUN Creatinine Glucose POC Glucose (mg/dL) 155 H Calcium Magnesium AST ALT Alkaline Phosphatase Troponin I Total Protein Albumin Urine Protein Hyaline Casts Urine Mucus 07/13/22 07/13/22 07/13/22 06:30 07:30 08:55 WBC 13.8 H RBC 3.02 L Hgb 9.9 L Hct 30.7 L MCV 101.7 H Neutrophils # 11.7 H Lymphocytes # PT 15.8 H INR 1.6 H APTT Sodium 135 L Potassium 5.4 H Carbon Dioxide 18 L BUN 48 H Creatinine 2.27 H Glucose 139 H POC Glucose (mg/dL) Calcium 7.6 L Magnesium AST 6617 H ALT 5099 H Alkaline Phosphatase 129 H Troponin I Total Protein 6.1 L Albumin 3.1 L Urine Protein Hyaline Casts Urine Mucus 07/13/22 11:33 WBC RBC Hgb Hct MCV Neutrophils # Lymphocytes # PT INR APTT Sodium Potassium Carbon Dioxide BUN Creatinine Glucose POC Glucose (mg/dL) 141 H Calcium Magnesium AST ALT Alkaline Phosphatase Troponin I Total Protein Albumin Urine Protein Hyaline Casts Urine Mucus - Diagnostic Findings Chest x-ray: image reviewed (Chest x-ray on admission showed nonspecific parenchymal fibrotic changes bilaterally/chronic) Assessment and Plan Assessment: Impression: Suspect cardiogenic shock Suspect ventricular septal defect, may require surgical intervention Coronary artery disease, status post successful PCI of LAD on 07/04/2022, and un successful revascularization attempt of RCA Severe cardiomyopathy with ejection fraction of 40-45% Shock liver secondary to cardiogenic shock Acute kidney injury secondary to cardiogenic shock/cardiorenal syndrome History of pulmonary embolism History of cerebral aneurysm and previous stenting 200 Benign essential hypertension Mitral valve regurgitation 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 In the meantime we'll continue to monitor and follow in the ICU until the patient is transferred to a tertiary care facility. Prognosis is guarded. We'll continue to follow Time with Patient: Greater than 30
[2022-07-13] MEDS: HEPARIN SOD,PORK IN 0.45% NACL 25,000 UNIT in 0.45% NACL 1 250ML.BAG IV SCH (14:24)
--- NOTE | 2022-07-13 15:13 | P.DS ---
Providers Date of admission: 07/12/22 12:19 Expected date of discharge: 07/13/22 Attending physician: Jonah Marr MD Consults: 07/12/22 11:25 Consult Physician Routine Consulting Provider: [facility] Consult Reason/Comments: new afib with rvr, recent cardiac stent last week, elevated troponin Do you want consulting provider notified?: Yes 07/12/22 13:27 Consult Physician Urgent Consulting Provider: Pedro Ayon Consult Reason/Comments: aneurysm Do you want consulting provider notified?: Already Contacted 07/12/22 16:17 Consult Physician Urgent Consulting Provider: Gonsalo Levine Consult Reason/Comments: icu management Do you want consulting provider notified?: Yes Primary care physician: [facility] Hospital Course: Discharge Diagnosis: Cardiogenic shock Ventricular septal defect, new finding CAD status post PCI to LAD Supraventricular tachycardia, unclear if MAT versus A. fib Pulmonary vascular congestion Acute on chronic hypoxic respiratory failure Acute kidney injury, likely cardiorenal Metabolic acidosis Mild hyperkalemia Ischemic hepatitis Moderate pulmonary hypertension Moderate MR Hospital Course: 77-year-old man with medical history of STEMI with recent stent placement approximately one week ago, hypertension, hyperlipidemia, COPD, BPH presented for evaluation of dyspnea, atrial fibrillation. In the emergency room, patient was afebrile, 90/56, heart rate 108, 98% on room air. CBC shows anemia down to 10.8, otherwise unremarkable. Chemistries show hyponatremia to 135, CO2 of 18, BUN of 37, creatinine of 1.74, glucose of 194, magnesium of 1.5. Liver function test show AST of 91, ALT of 92, protein of 6.1, albumin of 3.4. Troponin was 2.58, down trended to 2.14. BNP was 16,600. Coags show an INR 1.2. UA shows 1+ protein, 7 hyaline casts, otherwise unremarkable. Chest x-ray shows right- sided pleural effusion, bilateral alveolar infiltrates consistent with pulmonary edema with increased pulmonary vasculature. Initial EKG showed atrial fibrillation with RVR, left axis deviation, no signs of active ischemia. Repeat EKG showed sinus tachycardia at a rate of 100 with left axis deviation and left anterior fascicular block. Patient continued to remain hypotensive, was transferred to the ICU for vasopressors. Also there was a concern for pseudo aneurysm cardiology clinic, which was one of the reasons he was sent to the hospital. Echocardiogram report showed Mildly impaired LV function of 40-45%, moderate pulmonary hypertension, small ventricular septal defect, moderate MR. Cardiogenic shock likely secondary to VSD. Cardiology and cardiothoracic surgery recommended transfer patient to tertiary care center for surgical versus percutaneous repair of VSD Patient seen and examined at bedside. Vital signs reviewed and stable. General: nontoxic, no distress, appears at stated age Derm: warm, dry Head: atraumatic, normocephalic, symmetric Eyes: EOMI, no lid lag, anicteric sclera Mouth: no lip lesion, mucus membranes moist Cardiovascular: S1S2 reg, systolic murmur Lungs: Bilateral rales , no accessory muscle use, supplemental oxygen Abdominal: soft, nontender to palpation, no guarding, no appreciable organomegaly Ext: no gross muscle atrophy, no edema, no contractures Neuro: CN II-XI grossly intact, no focal neuro deficits Psych: Alert, oriented, appropriate affect Patient was discharged on 07/13/22. Patient Condition at Discharge: Critical Plan - Discharge Summary New Discharge Prescriptions: No Action Zinc Gluconate [Zinc] 50 mg PO BID Tamsulosin [Flomax] 0.4 mg PO DAILY Atorvastatin [Lipitor] 80 mg PO HS Latanoprost/Pf [Latanoprost 0.005% Eye Drop] 1 drop BOTH EYES HS Vit C/E/Zn/Coppr/Lutein/Zeaxan [Preservision Areds 2 Softgel] 1 cap PO BID Acyclovir 200 mg PO BID Hydrocortisone Cream [Hydrocortisone 2.5% Cream] 1 applic TOPICAL DAILY PRN PRN Reason: face Fluticasone Nasal [place] [Flonase Nasal [place]] 1 spr EA NOSTRIL BID Dicyclomine [Bentyl] 10 mg PO TID PRN PRN Reason: ibs Cholecalciferol [Vitamin D3 (25 Mcg = 1000 Iu)] 25 mcg PO DAILY metFORMIN HCL [Glucophage] 500 mg PO BID Multivit-Min/FA/Lycopen/Lutein [Centrum Silver Tablet] 1 tab PO DAILY Fish Oil/Dha/Epa [Fish Oil 1,200 mg Fish Oil] 1 cap PO DAILY Pregabalin 150 mg PO TID Apixaban [Eliquis] 5 mg PO BID Hydrocodone/Acetaminophen [Hydrocodone/Acetaminophen 7.5-325] 1 tab PO TID- W/MEALS methocarbamoL [Methocarbamol] 750 mg PO Q8H PRN PRN Reason: Muscle spasm lisinopriL [Prinivil] 20 mg PO HS Omeprazole 20 mg PO DAILY Cinnamon Bark [Cinnamon] 1,000 mg PO BID Ascorbic Acid [Vitamin C] 1,000 mg PO DAILY Hyoscyamine Sulfate [Levsin-Sl] 0.125 mg SL TID PRN PRN Reason: ibs Ketoconazole 2% Shampoo [Nizoral] 1 applic TOPICAL Q2D PRN PRN Reason: scalp,face,ears Tiotropium 2.5 Mcg/Puff [Spiriva Respimat 2.5 Mcg] 2 puff INHALATION RT-DAILY Alendronate Sodium [Fosamax] 70 mg PO WEEKLY Fluticasone Propion/Salmeterol [[place]ixela 250-50 Inhub] 1 puff INHALATION RT-BID Aspirin EC [Ecotrin Low Dose] 81 mg PO DAILY Glucosamine Sulfate 1,500 mg PO BID Discharge Medication List Acyclovir 200 mg PO BID 03/21/22 [History] Apixaban [Eliquis] 5 mg PO BID 03/21/22 [History] Ascorbic Acid [Vitamin C] 1,000 mg PO DAILY 03/21/22 [History] Atorvastatin [Lipitor] 80 mg PO HS 03/21/22 [History] Cinnamon Bark [Cinnamon] 1,000 mg PO BID 03/21/22 [History] Hydrocodone/Acetaminophen [Hydrocodone/Acetaminophen 7.5-325] 1 tab PO TID- W/MEALS 03/21/22 [History] Latanoprost/Pf [Latanoprost 0.005% Eye Drop] 1 drop BOTH EYES HS 03/21/22 [History] Omeprazole 20 mg PO DAILY 03/21/22 [History] Pregabalin 150 mg PO TID 03/21/22 [History] Tamsulosin [Flomax] 0.4 mg PO DAILY 03/21/22 [History] Vit C/E/Zn/Coppr/Lutein/Zeaxan [Preservision Areds 2 Softgel] 1 cap PO BID 03/21/22 [History] Zinc Gluconate [Zinc] 50 mg PO BID 03/21/22 [History] lisinopriL [Prinivil] 20 mg PO HS 03/21/22 [History] methocarbamoL [Methocarbamol] 750 mg PO Q8H PRN 03/21/22 [History] Alendronate Sodium [Fosamax] 70 mg PO WEEKLY 07/12/22 [History] Aspirin EC [Ecotrin Low Dose] 81 mg PO DAILY 07/12/22 [History] Cholecalciferol [Vitamin D3 (25 Mcg = 1000 Iu)] 25 mcg PO DAILY 07/12/22 [Histo ry] Dicyclomine [Bentyl] 10 mg PO TID PRN 07/12/22 [History] Fish Oil/Dha/Epa [Fish Oil 1,200 mg Fish Oil] 1 cap PO DAILY 07/12/22 [History] Fluticasone Nasal [place] [Flonase Nasal [place]] 1 spr EA NOSTRIL BID 07/12/22 [History] Fluticasone Propion/Salmeterol [[place]ixela 250-50 Inhub] 1 puff INHALATION RT-BID 07/12/22 [History] Glucosamine Sulfate 1,500 mg PO BID 07/12/22 [History] Hydrocortisone Cream [Hydrocortisone 2.5% Cream] 1 applic TOPICAL DAILY PRN 07/12/22 [History] Hyoscyamine Sulfate [Levsin-Sl] 0.125 mg SL TID PRN 07/12/22 [History] Ketoconazole 2% Shampoo [Nizoral] 1 applic TOPICAL Q2D PRN 07/12/22 [History] Multivit-Min/FA/Lycopen/Lutein [Centrum Silver Tablet] 1 tab PO DAILY 07/12/22 [History] Tiotropium 2.5 Mcg/Puff [Spiriva Respimat 2.5 Mcg] 2 puff INHALATION RT-DAILY 07/12/22 [History] metFORMIN HCL [Glucophage] 500 mg PO BID 07/12/22 [History] Follow up Appointment(s)/Referral(s): [facility],Clinic [Primary Care Provider] - 1-2 days Discharge Disposition: OTHER INSTITUTION NOT DEFINED
[2022-07-13 16:49] LABS: Glucose,Whole Blood 205 mg/dL (70-110)
[2022-07-13] MEDS ORDERED: HYDROcodone/APAP 7.5-325MG 1 EACH TAB PO PRN (18:42)
[2022-07-13] MEDS: ATORVASTATIN 80 MG TAB PO SCH (20:16)
[2022-07-13] MEDS: ZINC SULFATE 220 MG CAP PO SCH (20:16)
[2022-07-13 20:17] LABS: Glucose,Whole Blood 135 mg/dL (70-110)
[2022-07-13] MEDS: LATANOPROST 0.005% OPHTH DROPS 2.5 ML BTL BOTH EYES SCH (20:17)
[2022-07-13 22:30] VITALS: BP 70/54; PULSE 90; RESP 28; TEMP 98.2
== END 2022-07-14 05:14 | disposition short-term general hospital (02) | DRG 280 ==
LOC: EC 09:21 → 3SCARD 11:26 → OBSVTOIN 12:19 → 3SCARD 13:31 → 2SICU 17:14
PROVIDERS: ADMIT Student in an Organized Health Care Education/Training Program; ATTEND Student in an Organized Health Care Education/Training Program
PROC: 3E043XZ Introduction of Vasopressor into Central Vein, Percutaneous Approach (ICD-10-PCS; principal; 2022-07-13)
DX: Q21.0 Ventricular septal defect (principal); I50.21 Acute systolic (congestive) heart failure; I21.02 ST elevation (STEMI) myocardial infarction involving left anterior descending coronary artery; N17.0 Acute kidney failure with tubular necrosis; R57.0 Cardiogenic shock; K72.00 Acute and subacute hepatic failure without coma; J96.21 Acute and chronic respiratory failure with hypoxia; E87.1 Hypo-osmolality and hyponatremia; I13.0 Hypertensive heart and chronic kidney disease with heart failure and stage 1 through stage 4 chronic kidney disease, or unspecified chronic kidney disease; I42.9 Cardiomyopathy, unspecified; I47.1 Supraventricular tachycardia; I69.351 Hemiplegia and hemiparesis following cerebral infarction affecting right dominant side; I69.354 Hemiplegia and hemiparesis following cerebral infarction affecting left non-dominant side; Z87.891 Personal history of nicotine dependence; E78.5 Hyperlipidemia, unspecified; E83.42 Hypomagnesemia; D64.9 Anemia, unspecified; E87.5 Hyperkalemia; I69.311 Memory deficit following cerebral infarction; E11.22 Type 2 diabetes mellitus with diabetic chronic kidney disease; N18.9 Chronic kidney disease, unspecified; N40.0 Benign prostatic hyperplasia without lower urinary tract symptoms; I69.318 Other symptoms and signs involving cognitive functions following cerebral infarction; I27.20 Pulmonary hypertension, unspecified; I25.10 Atherosclerotic heart disease of native coronary artery without angina pectoris; I08.1 Rheumatic disorders of both mitral and tricuspid valves; I44.4 Left anterior fascicular block; I48.0 Paroxysmal atrial fibrillation; H91.91 Unspecified hearing loss, right ear; Z86.16 Personal history of COVID-19; Z82.49 Family history of ischemic heart disease and other diseases of the circulatory system; Z79.899 Other long term (current) drug therapy; Z86.711 Personal history of pulmonary embolism; Z79.84 Long term (current) use of oral hypoglycemic drugs; Z79.83 Long term (current) use of bisphosphonates; Z79.82 Long term (current) use of aspirin; Z79.01 Long term (current) use of anticoagulants; Z95.5 Presence of coronary angioplasty implant and graft; Z20.822 Contact with and (suspected) exposure to COVID-19; Z86.79 Personal history of other diseases of the circulatory system; K21.9 Gastro-esophageal reflux disease without esophagitis; K58.9 Irritable bowel syndrome, unspecified
CPT/HCPCS: 36415; 71046; 80053; 81001; 83735; 83880; 84132; 84484; 85025; 85610; 85730; 87635; 93005; 93306; 94640; 96361; 96365; 96366; 99291